=== PATIENT | male | born 1945 | race Caucasian/White ===

== ENCOUNTER 2020-06-22 16:03 | Emergency (ER) | payer MEDICARE, SELFPAY ==
--- NOTE | ~2020-06-22 | CT_ITS ---
EXAMINATION: CT HEAD WITHOUT CONTRAST CLINICAL INFORMATION: Altered mental status COMPARISON: CT head September 16, 2019 TECHNIQUE: Contiguous axial imaging was performed from the skull base to vertex without intravenous administration of contrast. Coronal and sagittal reformatted images are performed at the CT scanner. [This CT examination was performed using dose optimization techniques as appropriate, variously including the following: *Automated exposure control *Adjustment of mA and/or kV according to patient size (this includes techniques or standardized protocols for targeted exams where dose is matched to indication/reason for exam; i.e. extremities or head) *Use of iterative reconstruction technique] DLP: 1198 mGy-cm. FINDINGS: There is no evidence of acute intracranial hemorrhage or territorial infarction. No abnormal mass-effect or midline shift is seen. Dumas to white matter differentiation is well preserved. No extra-axial fluid collections are identified. There is atrophy with prominence of the ventricles and the sulci and hypodensity of the periventricular white matter due to chronic small vessel ischemic disease. There are vascular calcifications of the internal carotid arteries bilaterally. There is no osseous abnormality. The mastoid air cells and visualized portions of the paranasal sinuses are well-aerated. CT/CT head/brain wo con IMPRESSION: No acute intracranial pathology.
--- NOTE | ~2020-06-22 | CT_ITS ---
EXAMINATION: CT ABDOMEN AND PELVIS WITHOUT CONTRAST CLINICAL INFORMATION: Abdominal distention COMPARISON: 05/20/2019 TECHNIQUE: Multidetector volumetric imaging was performed from the superior aspect of the liver through the pubic symphysis. Sagittal and coronal reformatted images were obtained on the technologist's workstation. This CT examination was performed using dose optimization techniques as appropriate, variously including the following: *Automated exposure control *Adjustment of mA and/or kV according to patient size (this includes techniques or standardized protocols for targeted exams where dose is matched to indication/reason for exam; i.e. extremities or head) *Use of iterative reconstruction technique DLP: 1198 mGy-cm FINDINGS: LUNG BASES: No acute findings. LIVER, GALLBLADDER, AND BILIARY TREE: The liver is normal in size, shape, and attenuation. No focal hepatic lesion or biliary ductal dilatation is present. Cholelithiasis without CT evidence of acute cholecystitis. PANCREAS: Unremarkable. SPLEEN: Unremarkable. ADRENAL GLANDS: Unremarkable. KIDNEYS AND URETERS: Punctate nonobstructing calculus lower pole left kidney. No evidence of hydronephrosis or perinephric stranding bilaterally. Ureters normal in course and caliber bilaterally. BLADDER: TURP defect. No focal bladder wall abnormalities. GASTROINTESTINAL TRACT: There is an above average amount of well-formed stool seen throughout the entirety of the colon. The appendix is unremarkable. No evidence of bowel obstruction. ABDOMINAL WALL: No significant hernia is appreciated. LYMPH NODES: No lymphadenopathy within the abdomen or pelvis by CT criteria. VASCULAR: No abdominal aortic aneurysm. The IVC is singular and right-sided. PELVIC VISCERA: Status post TURP. OSSEOUS STRUCTURES: Diffusely decreased bone mineral density. Chronic varus deformity proximal right femur. No acute or suspicious osseous abnormality. CT/CT abdomen pelvis wo con IMPRESSION: 1. No evidence of acute abnormality within the abdomen or pelvis. 2. Constipation. 3. Cholelithiasis without CT evidence of cholecystitis. 4. Punctate nonobstructing left renal calculus.
--- NOTE | ~2020-06-22 | XR_ITS ---
EXAMINATION: PORTABLE CHEST 1 VIEW CLINICAL INFORMATION: ams . COMPARISON: 09/16/2019. TECHNIQUE: Portable frontal view of the chest was obtained. FINDINGS: Lungs are hyperinflated with chronic appearing coarsened reticular markings again seen bilaterally. I do not appreciate any acute superimposed focal infiltrate, effusion, edema, or pneumothorax. Cardiac silhouette within normal limits for size with a calcified mildly tortuous aorta. No acute bony abnormality. XR/XR chest 1V IMPRESSION: Chronic appearing changes similar to the prior study.
[2020-06-22 17:25] VITALS: BP 183/74; PULSE 74; RESP 14; O2SAT 94
[2020-06-22 19:48] VITALS: BP 158/80; PULSE 61; RESP 18; TEMP 36.5; O2SAT 98; BMI 26.6
--- NOTE | 2020-06-22 20:10 | PC.NURSE ---
PT TO MOVE TO MAIN ED. CHARGE NURSE AWARE. PT IS NOT ANSWERING QUESTIONS APPROPRIATELY. TIFFANI SMITH EVALED PATIENT WITH TELEVISION ANALYZER. PT CONTINUES TO C/O ABD PAIN AND BLOATING, URINARY FREQUENCY AND LEG PAIN.
--- NOTE | 2020-06-22 21:05 | ED.GENADULT ---
HPI - General Adult General Chief complaint: General Medical Stated complaint: leg pain Time Seen by Provider: 06/22/20 19:20 Source: patient Mode of arrival: other (Ambulatory with cane) Limitations: altered mental status History of Present Illness HPI narrative: 74-year-old male with past medical history of confusion and altered mental status presents with right toe pain, and altered mental status. Patient is answering questions, states to be confused, and is not in all along he has been confused for. He does have a girlfriend with him, girlfriend states that he is normally confused but today he does not seem to be is normal self. Both patient and patient's family are poor historians. Related Data Previous Rx's Medication Instructions Recorded cefuroxime axetil 500 mg PO Q12H 7 Days #14 tab 06/23/20 polyethylene glycol 3350 [Miralax] 17 g PO DAILY #850 g 06/23/20 Allergies Allergy/AdvReac Type Severity Reaction Status Date / Time No Known Allergies Allergy Unverified 12/11/19 15:44 Review of Systems Review of Systems: Constitutional: Positive altered mental status, No Fever, No Chills ENT/Mouth: No Ear Pain, No Hoarseness, No sore throat Eyes: No Eye Pain, No Swelling, No Redness, No Foreign Body Cardiovascular: No Chest Pain, No SOB Respiratory: No Cough, No Dyspnea Gastrointestinal: No Nausea, No Vomiting, No Diarrhea, No abdominal Pain Genitourinary: No Dysuria, No Hematuria Musculoskeletal: positive right toe pain, No Myalgias, No Joint Swelling Skin: No Skin lacerations, No rash Neuro: No Weakness, No Numbness, No Paresthesias, No Loss of Consciousness, No Dizziness, No Headache Psych: No Anxiety/Panic, No Depression Heme/Lymph: no easy bruising, no Lymphadenopathy Endocrine: No Polyuria, No Polydipsia Yes all other systems are reviewed and are negative [facility] Past Medical History Attestation statement: The following information was validated with the patient. Source: old records reviewed Social History Social History Advance Directives: No Advance Directives Information Provided: Yes Physical Exam Vital Signs: Vital Signs: Last Vital Signs Temp 97.7 F 06/22/20 19:48 Pulse 67 06/22/20 23:13 Resp 16 06/22/20 23:13 BP 151/84 H 06/22/20 23:13 Pulse Ox 95 06/22/20 23:13 Body Mass Index 26.6 Appearance: Alert. Oriented X to. Moderate distress. Confused, cachectic and frail Head: Normal external exam. Normocephalic. Atraumatic. No Babcock signs noted. No raccoon eyes noted Eyes: PERRLA. EOMI. Conjunctiva and sclera normal. Eyelids normal. ENT: TM's Normal. Pharynx normal. Uvula midline. Moist mucous membranes. No trismus noted. No drooling noted. No muffled voice noted. Neck: Normal inspection. Neck supple. No adenopathy. Thyroid Normal. No meningeal signs. No neck mass noted. CVS: Normal heart rate and rhythm. Heart sound normal. No murmurs noted. Pulses equal to all extremities. Respiratory: No respiratory distress. Painless inspiration. Lung sounds clear to auscultation all lobes Chest nontender. No accessory muscle usage noted or decreased air movement noted. Abdomen: Soft and diffusely tender, distended, Bowel sounds normal in all 4 quadrants. No visible injury noted. Back: Positive CVA tenderness. Full range of motion noted. Skin: Skin warm and dry. Normal skin color. Normal skin turgor. No rashes/lesions/lacerations noted. Extremities: No lower extremity edema. Extremities exhibit normal range of motion. Extremities nontender. Neuro: cranial nerves 2-12 intact, no focal neural deficits, strength 5/5 to all extremities, No motor deficit. No sensory deficit. NIH Stroke Scale Internal: Initial- Upon Arrival Level of Consciousness: Alert Level of Consciousness Questions: Answers one question correctly Level of Consciousness Commands: Performs one task correctly Best Gaze: Normal Visual: No visual loss Facial Palsy: Normal Motor Arm (Right): No drift Motor Arm (Left): No drift Motor Leg (Right): No drift Motor Leg (Left): No drift Limb Ataxia: Absent Sensory: Normal Best Language: No aphasia Dysarthia: Normal Extinction and Inattention: No abnormality Score: 2 Course Course Course Narrative: 74-year-old male presents with right toe pain, altered mental status, pleasantly confused, poor historian. Plan of care is to rule out CVA, ACS, patient's abdomen is diffusely tender with CVA tenderness, will order CT scan of abdomen pelvis, chest, and head. Will order labs. CT head abdomen and pelvis negative for acute findings requiring emergent intervention, there are punctate kidney stones and significant constipation to the abdomen, chest x-ray is negative, CBC, Chem 7 are remarkable. Urinalysis positive for UTI. Will treat with cefepime. Plan is to send patient home, patient does have someone that can sweet pickle maker cefepime for him in the morning. Patient is able to answer questions appropriately however needs redirection to stay on task. Medical Decision Making Differential Diagnosis Differential Diagnosis: ACS, CVA, UTI, sepsis, COVID Medical Records Medical records reviewed: Yes I reviewed the patient's medical records. Lab Data Lab results reviewed: Yes I reviewed the patient's lab results. Result diagrams: 06/22/20 22:07 06/22/20 22:07 Labs: Lab Results 06/22/20 06/22/20 06/22/20 Range/Units 22:07 22:07 22:07 WBC 5.0 (4.8-10.8) X10*3/uL RBC 4.33 L (4.60-5.80) X10*6/uL Hgb 12.0 L (14.0-18.0) g/dl Hct 36.3 L (42-52) % MCV 83.8 (80-98) fL MCH 27.7 (27.0-33.0) pg MCHC 33.1 (31.0-36.0) g/dl RDW 13.3 (11.0-16.0) % Plt Count 158 L (160-400) X10*3/uL MPV 10.6 (9.4-12.4) fL Immature Gran % (Auto) 0.2 (0.0-0.4) % Neut % (Auto) 70.8 (45-73) % Lymph % (Auto) 13.7 L (20-40) % Crenshaw % (Auto) 14.3 H (2-11) % Eos % (Auto) 1.0 (0-4) % Baso % (Auto) 0.0 (0-2) % Lymph # (Auto) 0.7 L (1.2-4.9) X10*3/uL Crenshaw # (Auto) 0.7 (0.1-1.2) X10*3/uL Eos # (Auto) 0.1 (0.0-0.4) X10*3/uL Baso # (Auto) 0.0 (0.0-0.2) X10*3/uL Abs Immat Gran (auto) 0.01 (0.00-0.03) X10*3/uL Absolute Neuts (auto) 3.5 (2.0-8.3) X10*3/uL Absolute Nucleated RBC 0.000 (0.0-0.012) X10*3/uL Nucleated RBC % (auto) 0.0 (0.0-0.2) /100WBC Smear Tech's Comments VERIFIED PT 12.5 (10.8-13.0) SEC INR 1.1 (0.9-1.1) APTT 28.0 (24.1-38.0) SEC Sodium 142 (135-145) mmol/L Potassium 3.8 (3.3-5.1) mmol/L Chloride 105 (96-108) mmol/L Carbon Dioxide 28 (22-29) mmol/L Anion Gap 13 (12-20) BUN 15 (9-16) mg/dL Creatinine 1.08 (0.5-1.4) mg/dL Estim Creat Clear Calc 54.9 Estimated GFR > 60 Random Glucose 79 (60-115) mg/dL Lactic Acid (0.5-2.0) mmol/L Calcium 8.9 (8.4-10.2) mg/dL Magnesium 2.0 (1.6-2.6) mg/dL Total Bilirubin 0.6 (0.0-1.0) mg/dL Direct Bilirubin 0.2 (0.0-0.5) mg/dL AST 23 (5-37) U/L ALT 17 (0-40) U/L Alkaline Phosphatase 44 (39-117) U/L Troponin I High Sens (<3.5-35.0) ng/L Total Protein 6.6 (6.5-8.0) g/dL Albumin 4.3 (3.5-5.0) g/dL Lipase 40 (8-78) U/L Urine Color Urine Appearance Urine pH Ur Specific [place] Urine Protein Urine Glucose (UA) Urine Ketones Urine Blood Urine Nitrite Ur Leukocyte Esterase Urine RBC (0) /HPF Urine WBC (0-4) /HPF Ur Squamous Epith Cells /LPF Urine Bacteria /LPF Urine Opiates Screen Ur Barbiturates Screen Ur Phencyclidine Scrn Ur Amphetamines Screen U Benzodiazepines Scrn Urine Cocaine Screen U Marijuana (THC) Screen Ethyl Alcohol mg/dL Coronavirus (PCR) (Negative) Influenza Type A (PCR) (Negative) Influenza Type B (PCR) (Negative) RSV RNA Qual (PCR) (Negative) 06/22/20 06/22/20 06/22/20 Range/Units 22:07 22:07 22:07 WBC (4.8-10.8) X10*3/uL RBC (4.60-5.80) X10*6/uL Hgb (14.0-18.0) g/dl Hct (42-52) % MCV (80-98) fL MCH (27.0-33.0) pg MCHC (31.0-36.0) g/dl RDW (11.0-16.0) % Plt Count (160-400) X10*3/uL MPV (9.4-12.4) fL Immature Gran % (Auto) (0.0-0.4) % Neut % (Auto) (45-73) % Lymph % (Auto) (20-40) % Crenshaw % (Auto) (2-11) % Eos % (Auto) (0-4) % Baso % (Auto) (0-2) % Lymph # (Auto) (1.2-4.9) X10*3/uL [place] # (Auto) (0.1-1.2) X10*3/uL Eos # (Auto) (0.0-0.4) X10*3/uL Baso # (Auto) (0.0-0.2) X10*3/uL Abs Immat Gran (auto) (0.00-0.03) X10*3/uL Absolute Neuts (auto) (2.0-8.3) X10*3/uL Absolute Nucleated RBC (0.0-0.012) X10*3/uL Nucleated RBC % (auto) (0.0-0.2) /100WBC Smear Tech's Comments PT (10.8-13.0) SEC INR (0.9-1.1) APTT (24.1-38.0) SEC Sodium (135-145) mmol/L Potassium (3.3-5.1) mmol/L Chloride (96-108) mmol/L Carbon Dioxide (22-29) mmol/L Anion Gap (12-20) BUN (9-16) mg/dL Creatinine (0.5-1.4) mg/dL Estim Creat Clear Calc Estimated GFR Random Glucose (60-115) mg/dL Lactic Acid 0.5 (0.5-2.0) mmol/L Calcium (8.4-10.2) mg/dL Magnesium (1.6-2.6) mg/dL Total Bilirubin (0.0-1.0) mg/dL Direct Bilirubin (0.0-0.5) mg/dL AST (5-37) U/L ALT (0-40) U/L Alkaline Phosphatase (39-117) U/L Troponin I High Sens < 3.5 (<3.5-35.0) ng/L Total Protein (6.5-8.0) g/dL Albumin (3.5-5.0) g/dL Lipase (8-78) U/L Urine Color Urine Appearance Urine pH Ur Specific [place] Urine Protein Urine Glucose (UA) Urine Ketones Urine Blood Urine Nitrite Ur Leukocyte Esterase Urine RBC (0) /HPF Urine WBC (0-4) /HPF Ur Squamous Epith Cells /LPF Urine Bacteria /LPF Urine Opiates Screen Ur Barbiturates Screen Ur Phencyclidine Scrn Ur Amphetamines Screen U Benzodiazepines Scrn Urine Cocaine Screen U Marijuana (THC) Screen Ethyl Alcohol mg/dL Coronavirus (PCR) NEGATIVE (Negative) Influenza Type A (PCR) NEGATIVE (Negative) Influenza Type B (PCR) NEGATIVE (Negative) RSV RNA Qual (PCR) NEGATIVE (Negative) 06/22/20 06/22/20 06/22/20 Range/Units 22:07 22:22 22:22 WBC (4.8-10.8) X10*3/uL RBC (4.60-5.80) X10*6/uL Hgb (14.0-18.0) g/dl Hct (42-52) % MCV (80-98) fL MCH (27.0-33.0) pg MCHC (31.0-36.0) g/dl RDW (11.0-16.0) % Plt Count (160-400) X10*3/uL MPV (9.4-12.4) fL Immature Gran % (Auto) (0.0-0.4) % Neut % (Auto) (45-73) % Lymph % (Auto) (20-40) % C[place]shaw % (Auto) (2-11) % Eos % (Auto) (0-4) % Baso % (Auto) (0-2) % Lymph # (Auto) (1.2-4.9) X10*3/uL [place] # (Auto) (0.1-1.2) X10*3/uL Eos # (Auto) (0.0-0.4) X10*3/uL Baso # (Auto) (0.0-0.2) X10*3/uL Abs Immat Gran (auto) (0.00-0.03) X10*3/uL Absolute Neuts (auto) (2.0-8.3) X10*3/uL Absolute Nucleated RBC (0.0-0.012) X10*3/uL Nucleated RBC % (auto) (0.0-0.2) /100WBC Smear Tech's Comments PT (10.8-13.0) SEC INR (0.9-1.1) APTT (24.1-38.0) SEC Sodium (135-145) mmol/L Potassium (3.3-5.1) mmol/L Chloride (96-108) mmol/L Carbon Dioxide (22-29) mmol/L Anion Gap (12-20) BUN (9-16) mg/dL Creatinine (0.5-1.4) mg/dL Estim Creat Clear Calc Estimated GFR Random Glucose (60-115) mg/dL Lactic Acid (0.5-2.0) mmol/L Calcium (8.4-10.2) mg/dL Magnesium (1.6-2.6) mg/dL Total Bilirubin (0.0-1.0) mg/dL Direct Bilirubin (0.0-0.5) mg/dL AST (5-37) U/L ALT (0-40) U/L Alkaline Phosphatase (39-117) U/L Troponin I High Sens (<3.5-35.0) ng/L Total Protein (6.5-8.0) g/dL Albumin (3.5-5.0) g/dL Lipase (8-78) U/L Urine Color Cancelled Urine Appearance Cancelled Urine pH Cancelled Ur Specific [place] Cancelled Urine Protein Cancelled Urine Glucose (UA) Cancelled Urine Ketones Cancelled Urine Blood Cancelled Urine Nitrite Cancelled Ur Leukocyte Esterase Cancelled Urine RBC (0) /HPF Urine WBC (0-4) /HPF Ur Squamous Epith Cells /LPF Urine Bacteria /LPF Urine Opiates Screen Cancelled Ur Barbiturates Screen Cancelled Ur Phencyclidine Scrn Cancelled Ur Amphetamines Screen Cancelled U Benzodiazepines Scrn Cancelled Urine Cocaine Screen Cancelled U Marijuana (THC) Screen Cancelled Ethyl Alcohol < 10 mg/dL Coronavirus (PCR) (Negative) Influenza Type A (PCR) (Negative) Influenza Type B (PCR) (Negative) RSV RNA Qual (PCR) (Negative) 06/23/20 06/23/20 Range/Units 00:00 00:00 WBC (4.8-10.8) X10*3/uL RBC (4.60-5.80) X10*6/uL Hgb (14.0-18.0) g/dl Hct (42-52) % MCV (80-98) fL MCH (27.0-33.0) pg MCHC (31.0-36.0) g/dl RDW (11.0-16.0) % Plt Count (160-400) X10*3/uL MPV (9.4-12.4) fL Immature Gran % (Auto) (0.0-0.4) % Neut % (Auto) (45-73) % Lymph % (Auto) (20-40) % [place] % (Auto) (2-11) % Eos % (Auto) (0-4) % Baso % (Auto) (0-2) % Lymph # (Auto) (1.2-4.9) X10*3/uL [place] # (Auto) (0.1-1.2) X10*3/uL Eos # (Auto) (0.0-0.4) X10*3/uL Baso # (Auto) (0.0-0.2) X10*3/uL Abs Immat Gran (auto) (0.00-0.03) X10*3/uL Absolute Neuts (auto) (2.0-8.3) X10*3/uL Absolute Nucleated RBC (0.0-0.012) X10*3/uL Nucleated RBC % (auto) (0.0-0.2) /100WBC Smear Tech's Comments PT (10.8-13.0) SEC INR (0.9-1.1) APTT (24.1-38.0) SEC Sodium (135-145) mmol/L Potassium (3.3-5.1) mmol/L Chloride (96-108) mmol/L Carbon Dioxide (22-29) mmol/L Anion Gap (12-20) BUN (9-16) mg/dL Creatinine (0.5-1.4) mg/dL Estim Creat Clear Calc Estimated GFR Random Glucose (60-115) mg/dL Lactic Acid (0.5-2.0) mmol/L Calcium (8.4-10.2) mg/dL Magnesium (1.6-2.6) mg/dL Total Bilirubin (0.0-1.0) mg/dL Direct Bilirubin (0.0-0.5) mg/dL AST (5-37) U/L ALT (0-40) U/L Alkaline Phosphatase (39-117) U/L Troponin I High Sens (<3.5-35.0) ng/L Total Protein (6.5-8.0) g/dL Albumin (3.5-5.0) g/dL Lipase (8-78) U/L Urine Color YELLOW Urine Appearance CLEAR Urine pH 6.0 Ur Specific [place] 1.010 Urine Protein NEG Urine Glucose (UA) NEG Urine Ketones NEG Urine Blood 1+ H Urine Nitrite NEG Ur Leukocyte Esterase 1+ H Urine RBC 1-4 (0) /HPF Urine WBC 5-9 H (0-4) /HPF Ur Squamous Epith Cells TRACE /LPF Urine Bacteria TRACE /LPF Urine Opiates Screen Not Detected Ur Barbiturates Screen Not Detected Ur Phencyclidine Scrn Not Detected Ur Amphetamines Screen Not Detected U Benzodiazepines Scrn Not Detected Urine Cocaine Screen Not Detected U Marijuana (THC) Screen Not Detected Ethyl Alcohol mg/dL Coronavirus (PCR) (Negative) Influenza Type A (PCR) (Negative) Influenza Type B (PCR) (Negative) RSV RNA Qual (PCR) (Negative) Imaging Data Chest x-ray: Attestation: I personally reviewed and interpreted this imaging study as follows: Radiologist's impression: EXAMINATION: PORTABLE CHEST 1 VIEW CLINICAL INFORMATION: ams . COMPARISON: 09/16/2019. TECHNIQUE: Portable frontal view of the chest was obtained. FINDINGS: Lungs are hyperinflated with chronic appearing coarsened reticular markings again seen bilaterally. I do not appreciate any acute superimposed focal infiltrate, effusion, edema, or pneumothorax. Cardiac silhouette within normal limits for size with a calcified mildly tortuous aorta. No acute bony abnormality. XR/XR chest 1V IMPRESSION: Chronic appearing changes similar to the prior study. CT scan - head: Attestation: I personally reviewed and interpreted this imaging study as follows: Radiologist's impression: EXAMINATION: CT HEAD WITHOUT CONTRAST CLINICAL INFORMATION: Altered mental status COMPARISON: CT head September 16, 2019 TECHNIQUE: Contiguous axial imaging was performed from the skull base to vertex without intravenous administration of contrast. Coronal and sagittal reformatted images are performed at the CT scanner. [This CT examination was performed using dose optimization techniques as appropriate, variously including the following: *Automated exposure control *Adjustment of mA and/or kV according to patient size (this includes techniques or standardized protocols for targeted exams where dose is matched to indication/reason for exam; i.e. extremities or head) *Use of iterative reconstruction technique] DLP: 1198 mGy-cm. FINDINGS: There is no evidence of acute intracranial hemorrhage or territorial infarction. No abnormal mass-effect or midline shift is seen. Dumas to white matter differentiation is well preserved. No extra-axial fluid collections are identified. There is atrophy with prominence of the ventricles and the sulci and hypodensity of the periventricular white matter due to chronic small vessel ischemic disease. There are vascular calcifications of the internal carotid arteries bilaterally. There is no osseous abnormality. The mastoid air cells and visualized portions of the paranasal sinuses are well-aerated. CT/CT head/brain wo con IMPRESSION: No acute intracranial pathology. CT scan - abdomen: Attestation: I personally reviewed and interpreted this imaging study as follows: Radiologist's impression: FINDINGS: LUNG BASES: No acute findings. LIVER, GALLBLADDER, AND BILIARY TREE: The liver is normal in size, shape, and attenuation. No focal hepatic lesion or biliary ductal dilatation is present. Cholelithiasis without CT evidence of acute cholecystitis. PANCREAS: Unremarkable. SPLEEN: Unremarkable. ADRENAL GLANDS: Unremarkable. KIDNEYS AND URETERS: Punctate nonobstructing calculus lower pole left kidney. No evidence of hydronephrosis or perinephric stranding bilaterally. Ureters normal in course and caliber bilaterally. BLADDER: TURP defect. No focal bladder wall abnormalities. GASTROINTESTINAL TRACT: There is an above average amount of well-formed stool seen throughout the entirety of the colon. The appendix is unremarkable. No evidence of bowel obstruction. ABDOMINAL WALL: No significant hernia is appreciated. LYMPH NODES: No lymphadenopathy within the abdomen or pelvis by CT criteria. VASCULAR: No abdominal aortic aneurysm. The IVC is singular and right-sided. PELVIC VISCERA: Status post TURP. OSSEOUS STRUCTURES: Diffusely decreased bone mineral density. Chronic varus deformity proximal right femur. No acute or suspicious osseous abnormality. CT/CT abdomen pelvis wo con IMPRESSION: 1. No evidence of acute abnormality within the abdomen or pelvis. 2. Constipation. 3. Cholelithiasis without CT evidence of cholecystitis. 4. Punctate nonobstructing left renal calculus. ECG Data Attestation: I personally reviewed and interpreted this ECG as follows: Prior ECG tracings: not available for review Interpretation: Ventricular rate 54 beats per minute, TN 168, QRS 134, QT 452, QTC 428, sinus Lino, left axis deviation, nonspecific intraventricular block, prior EKGs unavailable secondary to system 130 error Discharge Plan Discharge Clinical Impression: Acute UTI Constipation Qualifiers: Constipation type: unspecified constipation type Qualified Code(s): K59.00 - Constipation, unspecified Patient Disposition: Home, Self-Care Instructions: Constipation (ED), Urinary Tract Infection in Men (ED) Additional Instructions: Te evaluaron por confusi?n y alteraci?n del estado mental. La miclisis indica UTI. Te trataremos con cefepime. Shannon medicamento es un antibi?angy. Por favor, recoja shannon medicamento y complete todo el curso. La tomograf?a computarizada del abdomen indica estre?imiento, as? rommel c?lculos renales. Por favor, khari muchos l?quidos, use MiraLax todos los d?as para ayudar con las deposiciones. Te quejaste de un gran dolor en el dedo del pie, esto podr?a ser gota. Por favor, darius un seguimiento con el m?dico de atenci?n primaria para pena evaluaci?n. Colin por elegir shannon departamento de emergencias para pena evaluaci?n. Por favor, darius un seguimiento con el m?dico de atenci?n primaria seg?n sea necesario. Regrese al servicio de emergencias para cualquier s?ntoma nuevo, preocupante o que empeore. You were evaluated for confusion and altered mental status. Urinalysis indicates UTI. We will treat you with cefepime. This medication is an antibiotic. Please sweet pickle maker this medication and complete the entire course. CT scan of the abdomen indicates constipation as well as kidney stones. Please drink plenty of fluids, use MiraLax daily to help with bowel movements. You complained of great toe pain, this could possibly be gout. Please follow-up with primary care physician for evaluation. Thank you for choosing this emergency department for evaluation. Please follow-up with primary care physician as needed. Return to the emergency department for any new, concerning, or worsening symptoms. Prescriptions: New cefuroxime axetil 500 mg tablet 500 mg PO Q12H 7 Days Qty: 14 RF: 0 polyethylene glycol 3350 [Miralax] 17 gram/dose powder 17 g PO DAILY Qty: 850 RF: 0
--- NOTE | 2020-06-22 21:06 | ECG_ITS ---
Test Reason : ams Blood Pressure : / mmHG Vent. Rate : 054 BPM Atrial Rate : 054 BPM P-R Int : 168 ms QRS Dur : 134 ms QT Int : 452 ms P-R-T Axes : 082 -66 -36 degrees QTc Int : 428 ms Sinus bradycardia Left axis deviation Non-specific intra-ventricular conduction block Abnormal ECG When compared to the previous EKG of No significant changes seen Referred By: Katarzyna Muhammad Electronically Signed By:Haider Hurt
--- NOTE | 2020-06-22 21:06 | PC.NURSE ---
CHARGE NURSE AWARE THAT PATIENT NOT COMPLETELY ORIENTED AND IS THREATENING TO LEAVE. WAITING FOR BED IN MAIN ED.
[2020-06-22 22:20] LABS: Eosinophils Absolute Auto 0.1 X10*3/uL (0.0-0.4); Hematocrit 36.3 % (42-52); Imm Gran Abs Auto 0.01 X10*3/uL (0.00-0.03); Imm Gran Pct Auto 0.2 % (0.0-0.4); Lymphocytes Absolute Auto 0.7 X10*3/uL (1.2-4.9); Lymphocytes Percent Auto 13.7 % (20-40); MANUAL DIFF FLAG SCAN; Mean Corpuscular HGB Conc 33.1 g/dl (31.0-36.0); Mean Corpuscular Hemoglobin 27.7 pg (27.0-33.0); Mean Corpuscular Volume 83.8 fL (80-98); Mean Platelet Volume 10.6 fL (9.4-12.4); Monocytes Absolute Auto 0.7 X10*3/uL (0.1-1.2); Monocytes Percent Auto 14.3 % (2-11); Neutrophils Absolute Auto 3.5 X10*3/uL (2.0-8.3); Neutrophils Percent Auto 70.8 % (45-73); Platelet Count 158 X10*3/uL (160-400); Red Blood Count 4.33 X10*6/uL (4.60-5.80); Red Cell Distribution Width 13.3 % (11.0-16.0); SCAN SMEAR FLAG 1
[2020-06-22 22:26] LABS: INTERNATIONAL NORM RATIO 1.1 (0.9-1.1); Prothrombin Time 12.5 SEC (10.8-13.0)
[2020-06-22 22:45] LABS: Lactic Acid 0.5 mmol/L (0.5-2.0)
[2020-06-22 22:47] LABS: SLIDE REVIEW VERIFIED
[2020-06-22 22:49] LABS: Ethanol < 10 mg/dL
[2020-06-22 22:51] LABS: Alanine Aminotransferase 17 U/L (0-40); Albumin Level 4.3 g/dL (3.5-5.0); Alkaline Phosphatase 44 U/L (39-117); Anion Gap 13 (12-20); Aspartate Amino Transferase 23 U/L (5-37); Bilirubin Direct 0.2 mg/dL (0.0-0.5); Bilirubin Total 0.6 mg/dL (0.0-1.0); Blood Urea Nitrogen 15 mg/dL (9-16); Calcium 8.9 mg/dL (8.4-10.2); Carbon Dioxide 28 mmol/L (22-29); Chloride 105 mmol/L (96-108); Creatinine Clr Calc Pharmacy 54.9; Estimated Glomerular Filt Rate > 60; Glucose Random 79 mg/dL (60-115); Lipase 40 U/L (8-78); Potassium 3.8 mmol/L (3.3-5.1); Sodium 142 mmol/L (135-145); Total Protein 6.6 g/dL (6.5-8.0)
[2020-06-22 22:57] LABS: Troponin-I High Sensitivity < 3.5 ng/L (<3.5-35.0)
[2020-06-22 23:01] LABS: Influenza A PCR NEGATIVE (Negative); Influenza B PCR NEGATIVE (Negative); Resp Syncy Virus RNA Qual PCR NEGATIVE (Negative); SARS COV2 PCR INHOUSE NEGATIVE (Negative)
[2020-06-22] MEDS: 0.9 % Sodium Chloride 1,000 ML 999 ML IVCONT (23:12)
[2020-06-22 23:13] VITALS: BP 151/84; PULSE 67; RESP 16; O2SAT 95
[2020-06-23 00:08] LABS: Glucose Urine UA NEG (NEG); Leukocyte Esterase Urine 1+ (NEG); Nitrite Urine NEG (NEG); UACC Culture Trigger YES; Urine Blood 1+ (NEG); Urine Ketones NEG (NEG); Urine Protein NEG (NEG-TRACE)
[2020-06-23 00:09] LABS: Appearance Urine CLEAR; Color Urine YELLOW
[2020-06-23 00:16] LABS: Squamous Epithelial Cell Urine TRACE /LPF
[2020-06-23 00:17] LABS: Bacteria Urine TRACE /LPF
[2020-06-23 00:58] LABS: Amphetamine Screen Urine Not Detected (Not Detect); Barbiturates, Urine Not Detected (Not Detect); Benzodiazepines Screen Urine Not Detected (Not Detect); Cannabinoid Screen Urine Not Detected (Not Detect); Cocaine Screen Urine Not Detected (Not Detect); Opiate Screen Urine Not Detected (Not Detect); Phencyclidine Screen Urine Not Detected (Not Detect)
== END 2020-06-23 02:38 | disposition home or self-care (01) ==
PROVIDERS: Nurse Practitioner Family; Emergency Provider Emergency Medicine Emergency Medical Services; PCP Nurse Practitioner Family
DX: N39.0 Urinary tract infection, site not specified (principal); K59.00 Constipation, unspecified; M79.604 Pain in right leg; R29.702 NIHSS score 2; R41.82 Altered mental status, unspecified; Z20.822 Contact with and (suspected) exposure to COVID-19; Z79.899 Other long term (current) drug therapy
CPT/HCPCS: 0241U; 36415; 70450; 71045; 74176; 80048; 80076; 80307; 80320; 81001; 81003; 83605; 83690; 83735; 84484; 85025; 85610; 85730; 87040; 87086; 93005; 96360; 99283; 99284

== ENCOUNTER 2020-08-03 12:33 | Outpatient (REF) | payer MEDICARE, SELFPAY ==
--- NOTE | ~2020-08-03 | XR_ITS ---
EXAMINATION: XR KNEE, RIGHT CLINICAL INFORMATION: Right knee pain. COMPARISON: 06/02/2019 and 06/27/2017 TECHNIQUE: Four views of the right knee. FINDINGS: There is diffuse osteopenia of visualized bones. There is severe degenerative change of the medial joint space compartment with loss of the joint space and with marginal sclerosis. No significant narrowing of the lateral joint space compartment is seen with minor marginal spurring. There is degenerative spurring seen at the patellofemoral joint with some loss of joint space seen medially and with some prominent spurring. There is a small knee effusion. There is chondrocalcinosis present. The corticated loose body about the anterior joint space is again noted and unchanged in appearance. XR/XR knee RT 4V IMPRESSION: Degenerative change of the right knee involving the medial joint space compartment and patellofemoral joint, as described. This shows progression of disease involving the medial joint space compartment since previous study of 06/02/2019. Loose body without significant change.
--- NOTE | ~2020-08-03 | US_ITS ---
EXAMINATION: US VENOUS ULTRASOUND WITH DOPPLER LOWER EXTREMITY, RIGHT CLINICAL INFORMATION: Swelling and pain COMPARISON: None TECHNIQUE: Ultrasound of the deep veins is performed from the hip to the calf with compression sonography and color and pulse Doppler assessment. Spectral analysis with color-flow imaging is performed. FINDINGS: There is normal venous compression and respiratory variation and augmented flow. The visualized common femoral vein, superficial femoral vein, profunda femoral vein, popliteal vein, and the trifurcation region shows no evidence of deep venous thrombosis. There is a 5.1 x 1.9 x 3.4 cm Pickett's cyst extending into the proximal calf. US/US venous duplex LE RT IMPRESSION: No DVT demonstrated in the right lower extremity. Pickett's cyst.
== END 2020-08-03 12:34 | disposition home or self-care (01) ==
LOC: HO.XRAY 12:33
PROVIDERS: PCP Family Medicine; Visit Provider Emergency Medicine
DX: M79.661 Pain in right lower leg (principal); M25.561 Pain in right knee; R60.0 Localized edema; Z85.51 Personal history of malignant neoplasm of bladder
CPT/HCPCS: 73564; 93971

== ENCOUNTER 2020-08-05 13:49 | Emergency (ER) | payer MEDICARE, SELFPAY ==
--- NOTE | ~2020-08-05 | XR_ITS ---
EXAMINATION: XR KNEE, RIGHT CLINICAL INFORMATION: Right knee pain COMPARISON: None TECHNIQUE: Four views of the right knee. FINDINGS: There is moderate loss of medial and patellofemoral compartment joint space with moderate suprapatellar joint effusion. Moderate periarticular spurring is seen in the medial and patellofemoral compartment. There is a 1.1 x 1.1 cm osseous loose body along the anterior knee joint best visualized on lateral projection. No soft tissue abnormality seen. XR/XR knee RT 4V IMPRESSION: Moderate to significant degenerative arthritic changes medial and patellofemoral compartment joint space with moderate suprapatellar joint effusion. There is 1.1 cm loose body anterior to knee joint.
[2020-08-05 15:21] VITALS: BP 133/77; PULSE 68; RESP 20; TEMP 36.8; O2SAT 98; BMI 27.4
--- NOTE | 2020-08-05 15:29 | ED.LOWEXIN ---
HPI - Extremity Injury (Lower) General Chief Complaint: Extremity Problem Stated Complaint: rt knee pain, no known injury Time Seen by Provider: 08/05/20 15:13 Source: patient and educational interpreter Mode of arrival: ambulatory Limitations: other (poor historian) History of Present Illness complaint: knee injury Onset (ago): day(s) (last night) Injury: Right: knee Type of Injury: hyperextension Place: home Severity: moderate Relieving factors: nothing Exacerbating factors: weight bearing, movement and palpation Context: other (was getting into his bed accidentally hyperextended his knee now c/o pain) Associated symptoms: snap/pop sensation, swelling and unable to bear weight Other symptoms: none Treatments prior to arrival: bandage Related Data Previous Rx's Medication Instructions Recorded cefuroxime axetil 500 mg PO Q12H 7 Days #14 tab 06/23/20 polyethylene glycol 3350 [Miralax] 17 g PO DAILY #850 g 06/23/20 hydrocodone-acetaminophen 1 tab PO Q6H PRN #12 tab 08/05/20 Allergies Allergy/AdvReac Type Severity Reaction Status Date / Time No Known Allergies Allergy Unverified 12/11/19 15:44 Review of Systems Review of Systems: Constitutional : No Fever, No Chills ENT/Mouth : No Ear Pain, No Hoarseness, No sore throat Eyes: No Eye Pain, No Swelling, No Redness, No Foreign Body Cardiovascular : No Chest Pain, No SOB Respiratory : No Cough, No Dyspnea Gastrointestinal : No Nausea, No Vomiting, No Diarrhea, No abdominal Pain Genitourinary : No Dysuria, No Hematuria Musculoskeletal : positive joint pain, No Myalgias, No Joint Swelling Skin : No Skin lacerations, No rash Neuro : No Weakness, No Numbness PMFSH Past Medical History Attestation statement: The following information was validated with the patient. Medical History Confusion Social History Social History Smoked in Last 30 Days: No Use of substances other than those prescribed or required for medical reasons: No Advance Directives: No Advance Directives Information Provided: Yes Physical Exam Vital Signs: Vital Signs: Last Vital Signs Temp 98.4 F 08/05/20 16:00 Pulse 61 08/05/20 16:00 Resp 16 08/05/20 16:00 BP 112/60 08/05/20 16:00 Pulse Ox 95 08/05/20 16:00 Body Mass Index 27.4 Appearance: Alert. Oriented X3. No acute distress. Eyes: Pupils equal, round and reactive to light. ENT: Pharynx normal. Neck: Normal inspection. Neck supple. CVS: Normal heart rate and rhythm. Pulses normal. Respiratory: No respiratory distress. Breath sounds normal. Abdomen: Soft and nontender. Skin: Skin warm and dry. Normal skin color. Normal skin turgor. Extremities: No lower extremity edema. No calf ttp N intact, R knee ttp along medial joint line - distal NV intact laxity in MCL and ACL testing Neuro: Oriented X 3. No motor deficit. No sensory deficit. Course Course Course Narrative: 74 yo male with some mild baseline confusion at this c/o R knee pain at this time NV intact, xrays ordered to r/o fracture, PO pain medications likely fracture vs ligamentous injury Procedures Orthopedic Splinting/Casting Injury #1: Side: right Lower Extremity Injury Location: knee Lower Extremity Immobilizer: knee immobilizer Other Orthopedic Equipment: cane MDM - Extremity Injury (Lower) MDM Narrative Medical decision making narrative: 74 yo male with some mild baseline confusion at this c/o R knee pain at this time NV intact, xrays ordered to r/o fracture, PO pain medications likely fracture vs ligamentous injury Discharge Plan Discharge Clinical Impression: Knee sprain Qualifiers: Encounter type: initial encounter Involved ligament of knee: unspecified ligament Laterality: right Qualified Code(s): S83.91XA - Sprain of unspecified site of right knee, initial encounter Patient Disposition: Home, Self-Care Instructions: Knee Sprain (ED), Knee Immobilizer (ED) Additional Instructions: return to ED for any worsening symptoms or concerns wear immobilizer until you see your doctor IMPRESSION: Moderate to significant degenerative arthritic changes medial and patellofemoral compartment joint space with moderate suprapatellar joint effusion. There is 1.1 cm loose body anterior to knee joint. Prescriptions: New hydrocodone-acetaminophen 5-325 mg tablet 1 tab PO Q6H PRN (Reason: pain) Qty: 12 RF: 0 No Action cefuroxime axetil 500 mg tablet 500 mg PO Q12H 7 Days Qty: 14 RF: 0 polyethylene glycol 3350 [Miralax] 17 gram/dose powder 17 g PO DAILY Qty: 850 RF: 0 Referrals: Raiza Blair PA-C [[facility]] - 1 week Print Language: Macedonian
[2020-08-05] MEDS: oxyCODONE HCl Immed Release 5 MG TABLET 10 MG PO (15:32)
[2020-08-05 16:00] VITALS: BP 112/60; PULSE 61; RESP 16; TEMP 36.9; O2SAT 95
--- NOTE | 2020-08-05 16:57 | PC.NURSE ---
knee immobilizer was placed on patient right leg prior to dc.
== END 2020-08-05 16:23 | disposition home or self-care (01) ==
PROVIDERS: Emergency Provider Emergency Medicine; PCP Family Medicine
DX: S83.91XA Sprain of unspecified site of right knee, initial encounter (principal); X50.1XXA Overexertion from prolonged static or awkward postures, initial encounter; Y93.89 Activity, other specified; Y92.032 Bedroom in apartment as the place of occurrence of the external cause; Y99.8 Other external cause status
CPT/HCPCS: 73564; 99283; 99284

== ENCOUNTER 2020-09-13 17:11 | Emergency (ER) | payer MEDICARE, SELFPAY ==
--- NOTE | ~2020-09-13 | XR_ITS ---
EXAMINATION: XR TOES, RIGHT CLINICAL INFORMATION: Rule out right first toe fracture. COMPARISON: None TECHNIQUE: AP, oblique and lateral radiographs of the right first metatarsal phalanx. FINDINGS: Diffuse osteopenia is noted. No fractures are identified. Mild joint space narrowing and subchondral sclerosis of the interphalangeal joint is identified. No dystrophic calcifications or subcutaneous emphysema is visualized. XR/XR toe RT min 2V IMPRESSION: No fractures or acute abnormalities of the right first metatarsal ray. 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
[2020-09-13 17:40] VITALS: BP 127/71; PULSE 75; RESP 16; TEMP 36.6; O2SAT 96; BMI 27.1
--- NOTE | 2020-09-13 18:37 | ED_ITS ---
HPI - Extremity Problem General Chief complaint: Extremity Problem Stated complaint: Toe swelling Time Seen by Provider: 09/13/20 18:20 Source: patient Mode of arrival: ambulatory Limitations: no limitations History of Present Illness HPI Narrative: Patient comes emergency room complaining of toe pain on his right foot. Patient states that 3 days ago he was changing the battery of his car, when he lifted the battery out of his car, he dropped it and fell on his great toe. Patient sustained a small abrasion, but states that he thinks that his toe may be fractured. Related Data Previous Rx's Medication Instructions Recorded cefuroxime axetil 500 mg PO Q12H 7 Days #14 tab 06/23/20 polyethylene glycol 3350 [Miralax] 17 g PO DAILY #850 g 06/23/20 hydrocodone-acetaminophen 1 tab PO Q6H PRN #12 tab 08/05/20 acetaminophen 500 mg PO Q6H PRN #10 tab 09/13/20 Allergies Allergy/AdvReac Type Severity Reaction Status Date / Time No Known Allergies Allergy Verified 09/13/20 17:43 Review of Systems Review of Systems: Constitutional : No Weight loss, No Fever, No Chills, No Night Sweats, No Fatigue, No Malaise ENT/Mouth : No Hearing loss, No Ear Pain, No Nasal Congestion, No Sinus Pain, No Hoarseness, No sore throat, No Rhinorrhea, No Swallowing Difficulty Eyes: No Eye Pain, No Swelling, No Redness, No Foreign Body, No Discharge, No Vision Changes Cardiovascular : No Chest Pain, No SOB, No Dyspnea on Exertion, No Orthopnea, No Edema, No Palpitations Respiratory : No Cough, No Sputum, No Wheezing, No Smoke Exposure, No Dyspnea Gastrointestinal : No Nausea, No Vomiting, No Diarrhea, No Constipation, No abdominal Pain, No Hematochezia, No Melena Genitourinary : no irregular bleeding, No Dysuria, No Urinary Frequency, No Hematuria, No Urinary Incontinence, No Urgency, No Flank Pain, No Urinary Flow Changes, No Hesitancy Musculoskeletal : Great toe pain on the right side No Myalgias, No Joint Swelling Skin : Small skin abrasion to the toe on the right foot Neuro : No Weakness, No Numbness, No Paresthesias, No Loss of Consciousness, No Dizziness, No Headache Psych : No Anxiety/Panic, No Depression, No SI/HI/AH/VH, No Social Issues, Heme/Lymph: No Bruising, No Bleeding,No Lymphadenopathy Endocrine : No Polyuria, No Polydipsia, No Temperature Intolerance [facility] Past Medical History Medical History Bladder cancer BPH (benign prostatic hyperplasia) Confusion COPD (chronic obstructive pulmonary disease) Diabetes mellitus Hepatitis B HIV disease Social History Social History Advance Directives: No Advance Directives Information Provided: No Physical Exam Vital Signs: Vital Signs: Last Vital Signs Temp 97.8 F 09/13/20 17:40 Pulse 75 09/13/20 17:40 Resp 16 09/13/20 17:40 BP 127/71 09/13/20 17:40 Pulse Ox 96 09/13/20 17:40 Body Mass Index 27.1 Appearance: Alert. Oriented X3. No acute distress. Eyes: Pupils equal, round and reactive to light. ENT: Pharynx normal. Neck: Normal inspection. Neck supple. No lymph nodes noted. No crepitus CVS: Normal heart rate and rhythm. Pulses normal. Normal S1 and S2 Respiratory: No respiratory distress. Breath sounds normal. No Wheezing. No rales Abdomen: Soft and nontender. No rigidity. No distention. good BS x4 Skin: Skin warm and dry. Great toe on the right foot has ecchymosis, 2 cm abrasion, bleeding controlled, no signs of cellulitis Extremities: No lower extremity edema. No lower extremity edema. No Lacerations. No Rash Neuro: Oriented X 3. No motor deficit. No sensory deficit. Moving all extermities. No slurred speech. Course Course Course Narrative: I discussed with the patient that his toe is not fractured. Patient will continue home wound care. As mentioned above, patient's foot does not look infected MDM - Extremity (Nontraumatic) Imaging Data Toe x-ray: Radiologist's impression: TECHNIQUE: AP, oblique and lateral radiographs of the right first metatarsal phalanx. FINDINGS: Diffuse osteopenia is noted. No fractures are identified. Mild joint space narrowing and subchondral sclerosis of the interphalangeal joint is identified. No dystrophic calcifications or subcutaneous emphysema is visualized. XR/XR toe RT min 2V IMPRESSION: No fractures or acute abnormalities of the right first metatarsal ray. 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 Discharge Plan Discharge Clinical Impression: Abrasion Contusion of toe Qualifiers: Encounter type: initial encounter Toe: great toe Damage to nail status: without damage Laterality: right Qualified Code(s): S90.111A - Contusion of right great toe without damage to nail, initial encounter Patient Disposition: Home, Self-Care Instructions: Foot Contusion (ED) Prescriptions: New acetaminophen 500 mg tablet 500 mg PO Q6H PRN (Reason: pain) Qty: 10 RF: 0 No Action cefuroxime axetil 500 mg tablet 500 mg PO Q12H 7 Days Qty: 14 RF: 0 polyethylene glycol 3350 [Miralax] 17 gram/dose powder 17 g PO DAILY Qty: 850 RF: 0 hydrocodone-acetaminophen 5-325 mg tablet 1 tab PO Q6H PRN (Reason: pain) Qty: 12 RF: 0
[2020-09-13] MEDS: traMADoL HCL 50 MG TABLET PO (18:56)
--- NOTE | 2020-09-13 20:40 | PC.NURSE ---
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 PT GIVEN PHONE TO CALL HER. PT IS DISCHARGED IN R.
== END 2020-09-13 20:15 | disposition home or self-care (01) ==
PROVIDERS: Emergency Provider Emergency Medicine
DX: S90.111A Contusion of right great toe without damage to nail, initial encounter (principal); S90.411A Abrasion, right great toe, initial encounter; W20.8XXA Other cause of strike by thrown, projected or falling object, initial encounter; Y93.89 Activity, other specified; Y92.9 Unspecified place or not applicable; Y99.9 Unspecified external cause status
CPT/HCPCS: 73660; 99283; 99284

== ENCOUNTER 2020-10-20 09:57 | Outpatient (REF) | payer MEDICARE, SELFPAY ==
--- NOTE | ~2020-10-20 | XR_ITS ---
EXAMINATION: AP STANDING VIEW OF BOTH KNEES WELL LATERAL AND SUNRISE VIEWS OF THE RIGHT KNEE CLINICAL INFORMATION: Right knee pain. COMPARISON: 08/05/2020 and 06/02/2019. TECHNIQUE: Standing AP view of both knees and lateral and sunrise views of the right knee. FINDINGS: Standing views of both knees demonstrate moderate narrowing of the left medial joint space compartment and severe narrowing of the right medial joint space compartment with marginal sclerosis and some spurring. There is also noted to be chondrocalcinosis about the lateral joint space compartment of the left knee. There is prominent spurring about the patellofemoral joint most prominent about the medial facet. Bony density about the anterior joint space measuring approximately 1.1 cm in maximum dimension is seen likely representing a loose body. There is a small right knee effusion. XR/XR knee RT 2V IMPRESSION: Moderate narrowing of the medial joint space compartment of the left knee. Severe degenerative change of the patellofemoral joint and medial joint space of the right knee with small right knee effusion. There has been some progression in narrowing of the medial joint space compartment.
--- NOTE | ~2020-10-20 | XR_ITS ---
EXAMINATION: AP STANDING VIEW OF BOTH KNEES WELL LATERAL AND SUNRISE VIEWS OF THE RIGHT KNEE CLINICAL INFORMATION: Right knee pain. COMPARISON: 08/05/2020 and 06/02/2019. TECHNIQUE: Standing AP view of both knees and lateral and sunrise views of the right knee. FINDINGS: Standing views of both knees demonstrate moderate narrowing of the left medial joint space compartment and severe narrowing of the right medial joint space compartment with marginal sclerosis and some spurring. There is also noted to be chondrocalcinosis about the lateral joint space compartment of the left knee. There is prominent spurring about the patellofemoral joint most prominent about the medial facet. Bony density about the anterior joint space measuring approximately 1.1 cm in maximum dimension is seen likely representing a loose body. There is a small right knee effusion. XR/XR knee standing BI IMPRESSION: Moderate narrowing of the medial joint space compartment of the left knee. Severe degenerative change of the patellofemoral joint and medial joint space of the right knee with small right knee effusion. There has been some progression in narrowing of the medial joint space compartment.
== END 2020-10-20 09:58 | disposition home or self-care (01) ==
LOC: HO.HOSX 09:57
PROVIDERS: Visit Provider Physician Assistant
DX: M17.11 Unilateral primary osteoarthritis, right knee (principal)
CPT/HCPCS: 73560; 73565; 99202

== ENCOUNTER 2020-11-10 14:22 | Outpatient (REF) | payer MEDICARE, SELFPAY ==
[2020-11-10 16:59] LABS: Urine Cytology See Pathology rpt
== END 2020-11-10 14:23 | disposition home or self-care (01) ==
LOC: HO.LNP 14:22
PROVIDERS: Visit Provider Urology
DX: C67.9 Malignant neoplasm of bladder, unspecified (principal); N40.1 Benign prostatic hyperplasia with lower urinary tract symptoms; R39.12 Poor urinary stream; N32.81 Overactive bladder
CPT/HCPCS: 51798; 88112; 99212

== ENCOUNTER 2021-10-29 18:07 | Emergency (ER) | payer OTHER, SELFPAY ==
--- NOTE | ~2021-10-29 | CT_ITS ---
EXAMINATION: CT HEAD WITHOUT CONTRAST CT CERVICAL SPINE WITHOUT CONTRAST CLINICAL INFORMATION: Fall COMPARISON: Head CT 06/22/2020. Cervical spine MRI 07/03/2018 TECHNIQUE: A noncontrast CT of the head and a noncontrast CT of the cervical spine with sagittal and coronal reformats. This CT examination was performed using dose optimization techniques as appropriate, variously including the following: *Automated exposure control *Adjustment of mA and/or kV according to patient size (this includes techniques or standardized protocols for targeted exams where dose is matched to indication/reason for exam; i.e. extremities or head) *Use of iterative reconstruction technique DLP: 1025 FINDINGS: No intra-axial or extra-axial hemorrhage. No acute territorial infarct. Chronic small vessel ischemic disease of the periventricular white matter, not significantly changed. Preservation of contreras-white matter differentiation. No mass, mass effect, or midline shift. No fracture. The mastoid air cells and visualized paranasal sinuses are clear. Moderate to severe multilevel spondylosis of the cervical spine with reversal of normal cervical lordosis and severe multilevel facet arthropathy which does not appear significantly changed. No fracture. No prevertebral soft tissue swelling. CT/CT cervical spine wo con IMPRESSION: No acute intracranial abnormality. Chronic microangiopathy. No cervical spine fracture or traumatic subluxation.
--- NOTE | ~2021-10-29 | XR_ITS ---
EXAMINATION: XR CHEST CLINICAL INFORMATION: Fall, weakness COMPARISON: 06/22/2020 TECHNIQUE: 2 views of the chest were obtained. FINDINGS: No focal consolidation, pulmonary edema, or pleural effusion. Chronic scarring at the anterior inferior aspect of the right middle lobe. Stable cardiomediastinal silhouette. XR/XR chest 2V IMPRESSION: No acute cardiopulmonary findings.
--- NOTE | ~2021-10-29 | CT_ITS ---
EXAMINATION: CT HEAD WITHOUT CONTRAST CT CERVICAL SPINE WITHOUT CONTRAST CLINICAL INFORMATION: Fall COMPARISON: Head CT 06/22/2020. Cervical spine MRI 07/03/2018 TECHNIQUE: A noncontrast CT of the head and a noncontrast CT of the cervical spine with sagittal and coronal reformats. This CT examination was performed using dose optimization techniques as appropriate, variously including the following: *Automated exposure control *Adjustment of mA and/or kV according to patient size (this includes techniques or standardized protocols for targeted exams where dose is matched to indication/reason for exam; i.e. extremities or head) *Use of iterative reconstruction technique DLP: 1025 FINDINGS: No intra-axial or extra-axial hemorrhage. No acute territorial infarct. Chronic small vessel ischemic disease of the periventricular white matter, not significantly changed. Preservation of contreras-white matter differentiation. No mass, mass effect, or midline shift. No fracture. The mastoid air cells and visualized paranasal sinuses are clear. Moderate to severe multilevel spondylosis of the cervical spine with reversal of normal cervical lordosis and severe multilevel facet arthropathy which does not appear significantly changed. No fracture. No prevertebral soft tissue swelling. CT/CT head/brain wo con IMPRESSION: No acute intracranial abnormality. Chronic microangiopathy. No cervical spine fracture or traumatic subluxation.
[2021-10-29 18:21] VITALS: BP 109/59; BP 90/60; PULSE 101; PULSE 79; RESP 20; TEMP 36.6; O2SAT 96; O2SAT 97; BMI 25.0
--- NOTE | 2021-10-29 19:08 | ECG_ITS ---
Test Reason : WEAKNESS Blood Pressure : / mmHG Vent. Rate : 070 BPM Atrial Rate : 070 BPM P-R Int : 126 ms QRS Dur : 134 ms QT Int : 422 ms P-R-T Axes : 051 -65 075 degrees QTc Int : 455 ms Normal sinus rhythm Left axis deviation Non-specific intra-ventricular conduction block Minimal voltage criteria for LVH, may be normal variant ( Ulysses product ) Nonspecific T wave abnormality Abnormal ECG When compared with ECG of 22-JUN-2020 21:51, T wave inversion no longer evident in Inferior leads Nonspecific T wave abnormality, worse in Lateral leads Referred By: Leonela Starkey Electronically Signed By:COURTNEY LUGO MD
[2021-10-29 19:53] LABS: MANUAL DIFF FLAG NO
[2021-10-29 19:54] LABS: Basophils Percent Auto 0.1 % (0-2); Eosinophils Percent Auto 0.3 % (0-4); Hematocrit 35.3 % (42.0-52.0); Hemoglobin 11.5 g/dl (14.0-18.0); Imm Gran Abs Auto 0.04 X10*3/uL (0.00-0.03); Imm Gran Pct Auto 0.4 % (0.0-0.4); Lymphocytes Absolute Auto 0.6 X10*3/uL (1.2-4.9); Lymphocytes Percent Auto 6.5 % (20-40); Mean Corpuscular HGB Conc 32.6 g/dl (31.0-36.0); Mean Corpuscular Hemoglobin 27.3 pg (27.0-33.0); Mean Corpuscular Volume 83.6 fL (80.0-98.0); Mean Platelet Volume 11.2 fL (9.4-12.4); Monocytes Absolute Auto 0.8 X10*3/uL (0.1-1.2); Monocytes Percent Auto 8.4 % (2-11); Neutrophils Absolute Auto 8.3 x10*3/uL (2.0-8.3); Neutrophils Percent Auto 84.3 % (45-73); Platelet Count 151 X10*3/uL (160-400); Red Blood Count 4.22 X10*6/uL (4.60-5.80); White Blood Count 9.9 X10*3/uL (4.8-10.8)
[2021-10-29 20:00] VITALS: BP 109/60; PULSE 72; RESP 14; O2SAT 97
[2021-10-29 20:12] LABS: Troponin-I High Sensitivity 11.1 ng/L (<3.5-35.0)
[2021-10-29 20:38] LABS: COVID-19 Test Negative (Negative)
--- NOTE | 2021-10-29 20:43 | ED.FALL ---
HPI - Fall General Chief Complaint: Fall <Leonela Starkey DAT - Last Filed: 10/29/21 21:21> Stated Complaint: fall <Leonela Starkey CNP - Last Filed: 10/29/21 21:21> Time Seen by Provider: 10/29/21 18:24 <Leonela StarkeyDAT - Last Filed: 10/29/21 21:21> Source: patient <Leonela Starkey DAT - Last Filed: 10/29/21 21:21> Mode of arrival: EMS <Leonela Starkey DAT - Last Filed: 10/29/21 21:21> Limitations: altered mental status <Leonela Starkey DAT - Last Filed: 10/29/21 21:21> History of Present Illness HPI Narrative: Patient presents to the emergency department via EMS, he was found by bystanders to be lying on the sidewalk, appearing to obstruct the back of his head is there is a small bump present. Was placed in a hard C-spine collar and transferred here. Upon talking with the patient he is a very vague historian. When asked what happened he states I was here. When questioned further he reports that there were people were unknown to him who were doing things to his hair. He is unable to provide any details surrounding the fall. When asked whether he has family or someone that we could contact he provides the name Georgiana, who is his [employer] in the home <Leonela Starkey CNP - Last Filed: 10/29/21 21:21> Related Data Home Medications: Home Medications Medication Instructions Recorded Confirmed aspirin 81 mg tablet,delayed 81 mg PO DAILY 10/20/20 10/30/21 release bictegravir 50 mg-emtricitabine 1 tab PO DAILY 10/20/20 10/30/21 200 mg-tenofovir alafenam 25 mg tablet (Biktarvy) citalopram 20 mg tablet 20 mg PO DAILY 10/20/20 10/30/21 docusate sodium 100 mg capsule 100 mg PO BID 10/20/20 10/30/21 famotidine 20 mg tablet 20 mg PO DAILY 10/20/20 10/30/21 umeclidinium 62.5 mcg/actuation 1 inh inhalation DAILY 10/20/20 10/30/21 blister powder for inhalation (Incruse Ellipta) albuterol sulfate 90 mcg/actuation 2 puff inhalation Q4H PRN 11/10/20 10/30/21 aerosol inhaler Respiratory Distress ammonium lactate 12 % topical cream 1 appl topical BID 11/10/20 10/30/21 blood sugar diagnostic (FreeStyle #10 ea 11/10/20 Lite Strips) lancets 28 gauge (FreeStyle #100 ea 11/10/20 Lancets) lancets 33 gauge (TRUEplus Lancets) #100 ea 11/10/20 lisinopril 5 mg tablet 5 mg PO DAILY 11/10/20 10/30/21 metformin 500 mg tablet 500 mg PO DAILY 11/10/20 10/30/21 multivitamin 1 tab PO QPM 11/10/20 10/30/21 oxybutynin chloride 10 mg 10 mg PO DAILY 11/10/20 10/30/21 tablet,extended release 24 hr sennosides 8.6 mg tablet (senna) 17.2 mg PO DAILY 11/10/20 10/30/21 acetaminophen 325 mg tablet 650 mg PO Q6H PRN Fever Or Pain 10/30/21 10/30/21 atorvastatin 40 mg tablet 40 mg PO BEDTIME 10/30/21 10/30/21 lidocaine 5 % topical patch 1 patch topical DAILY 10/30/21 10/30/21 tamsulosin 0.4 mg capsule 0.4 mg PO DAILY 10/30/21 10/30/21 <Leonela Starkey CNP - Last Filed: 10/29/21 21:21> Allergies/Adverse Reactions: Allergies Allergy/AdvReac Type Severity Reaction Status Date / Time No Known Allergies Allergy Verified 11/10/20 14:39 <Leonela Starkey CNP - Last Filed: 10/29/21 21:21> Review of Systems Review of Systems: Yes Unobtainable due to mental status <Leonela Starkey CNP - Last Filed: 10/29/21 21:21> [facility] Past Medical History Attestation statement: The following information was validated with the patient. <Leonela Starkey CNP - Last Filed: 10/29/21 21:21> Source: old records reviewed <Leonela Starkey CNP - Last Filed: 10/29/21 21:21> Medical History: Medical History Bladder cancer BPH (benign prostatic hyperplasia) Confusion COPD (chronic obstructive pulmonary disease) Diabetes mellitus Hepatitis B HIV disease Osteoarthritis of right knee <Leonela Starkey CNP - Last Filed: 10/29/21 21:21> Social History Social History: Social History Alcohol intake: never Patient Tobacco Use Status: Never used Tobacco Use of substances other than those prescribed or required for medical reasons: No Advance Directives: No Advance Directives Information Provided: Yes Current occupational status: retired <Leonela Starkey CNP - Last Filed: 10/29/21 21:21> Physical Exam Vital Signs: Vital Signs: Last Vital Signs Temp 97.4 F 10/30/21 07:04 Pulse 74 10/30/21 07:04 Resp 14 10/30/21 07:04 BP 127/78 10/30/21 07:04 Pulse Ox 95 10/30/21 07:04 O2 Del Method 10/30/21 07:04 BMI result Body Mass Index 25.0 <Leonela Starkey CNP - Last Filed: 10/29/21 21:21> Vital Signs: Last Vital Signs Temp 97.4 F 10/30/21 07:04 Pulse 74 10/30/21 07:04 Resp 14 10/30/21 07:04 BP 127/78 10/30/21 07:04 Pulse Ox 95 10/30/21 07:04 O2 Del Method 10/30/21 07:04 BMI result Body Mass Index 25.0 <Mamadou Angulo MD - Last Filed: 10/30/21 09:11> Vital Signs: Last Vital Signs Temp 97.4 F 10/30/21 07:04 Pulse 74 10/30/21 07:04 Resp 14 10/30/21 07:04 BP 127/78 10/30/21 07:04 Pulse Ox 95 10/30/21 07:04 O2 Del Method 10/30/21 07:04 BMI result Body Mass Index 25.0 <Edwige Kate NP - Last Filed: 10/30/21 13:17> Appearance: Alert.? Disoriented to place time and event. No acute distress.? Head: Contusion to the occiput, no lacerations. No palpable deformities. Eyes: Pupils equal, round and reactive to light.? EOMI. No nystagmus. ENT: Pharynx normal.?? Neck: Normal inspection.? Neck supple.??No midline cervical spine tenderness, step-offs, deformities CVS: Heart sounds normal. Normal heart rate and rhythm.? Pulses normal.?? Respiratory: No respiratory distress.? Lung sounds clear to auscultation bilaterally?? Abdomen: Soft and non-tender. Normoactive bowel sounds. Skin: Skin warm and dry.? Normal skin color.? Normal skin turgor.?? Extremities: No lower extremity edema.? No calf ttp? Neuro: Moves all extremities spontaneously. Sensation intact bilaterally. CN II-XII intact. No focal neuro deficits. <Leonela Starkey CNP - Last Filed: 10/29/21 21:21> Course Course Course Narrative: Patient is a 75-year-old male with a past medical history of bladder cancer, BPH, COPD, diabetes, HIV, hepatitis, and dementia presents emergency department after being found down on the ground outdoors by bystanders. Aside from the contusion to his occiput physical exam is overall unremarkable moving all extremities independently, in no apparent distress, vital signs are stable, no focal neurological findings. Contacted patient's [employer] Georgiana, she does states that he is confused at baseline due to dementia, she does not believe that he is on any blood thinners, was reportedly being treated for urinary tract infection last week by his primary care provider. He lives alone in [place]. She states it is not typical for him to wonder outdoors on his own. At this time it is unclear exactly where he was in relation to his home or what happened, precipitating events leading up to the fall. She does report that he has a remote history of drug abuse but not current. <Leonela Starkey CNP - Last Filed: 10/29/21 21:21> Reevaluation(s) Reevaluation #1: Head CT reveals no acute intracranial abnormality, chronic microangiopathy is noted no cervical spine fractures or dislocation. Heart C-spine collar removed. CBC reveals normocytic anemia consistent with baseline, mild thrombocytopenia consistent with baseline, no leukocytosis. <Leonela Schmid DAT Starkey - Last Filed: 10/29/21 21:21> Time: 20:49 <Leonela Schmid DAT Starkey - Last Filed: 10/29/21 21:21> Reevaluation #2: Patient signed out to Dr. Angulo pending chemistries, CPK, EKG, urinalysis, chest x-ray. Disposition pending results. <Leonela Schmid DAT Starkey - Last Filed: 10/29/21 21:21> Time: 21:19 <Leonela Gloriaperico Starkey CNP - Last Filed: 10/29/21 21:21> Reevaluation #3: 0235: I assumed care of this patient from my colleague, nurse practitioner Leonela Gagnon at 21:00 hours pending the patient's laboratory and radiology studies. Patient's CBC was normal except for low platelet count of a [id number]. The 1st troponin was 11.1 and the 3 hour repeat the troponin was 7.7. COVID-19 was negative. CK was only slightly elevated at 249 urinalysis was negative. Patient's BUN and creatinine were elevated at 32 and a creatinine of 2.67. The patient's baseline BUN creatinine from 06/22/2020 was 15 and 1.08. Chest x-ray was unremarkable in urinalysis was unremarkable. Twelve EKG was unremarkable as well. Given these findings, I believe the patient may and dehydrated volume depleted therefore he is ordered to get normal saline IV x2 L. I will repeat a BMP in a there is improvement the patient will be kept in the emergency department for case management and PT evaluation. <Mamadou Angulo MD - Last Filed: 10/30/21 09:11> Time: 02:35 <Mamadou Angulo MD - Last Filed: 10/30/21 09:11> Additional Reevaluation(s): 0904: The patient's repeat BMP is pending. At the end of my shift, patient's care was turned over to my colleague, nurse practitioner Dolly Kate. <Mamadou Angulo MD - Last Filed: 10/30/21 09:11> 0904: The patient's repeat BMP is pending. At the end of my shift, patient's care was turned over to my colleague, nurse practitioner Dolly Kate. 1200- the patient had a total of 3 L of fluid in his renal function is much improved. This is likely from some dehydration as the patient had spent some time outside. He is tolerating fluids and can orally hydrate from this point forward. He was seen by case management who discussed his care with his providers. He has quite a bit of resources at home including physical therapy and visiting nurses. His desire is to be at home which is in agreement with his providers. Therefore the plan is for patient to be discharged home to continue with his outpatient resources. <Edwige Kate NP - Last Filed: 10/30/21 13:17> MDM - Fall Medical Records Attestation: I reviewed the patient's medical records. <Leonela Starkey CNP - Last Filed: 10/29/21 21:21> I reviewed the patient's medical records. <Mamadou Angulo MD - Last Filed: 10/30/21 09:11> Lab Data Attestation: I reviewed the patient's lab results. <Leonela Starkey CNP - Last Filed: 10/29/21 21:21> Result diagrams: : 10/29/21 19:47 10/30/21 12:11 <Leonela Starkey CNP - Last Filed: 10/29/21 21:21> Labs: Lab Results 10/29/21 10/29/21 10/29/21 Range/Units 19:47 19:47 19:47 WBC 9.9 (4.8-10.8) X10*3/uL RBC 4.22 L (4.60-5.80) X10*6/uL Hgb 11.5 L (14.0-18.0) g/dl Hct 35.3 L (42.0-52.0) % MCV 83.6 (80.0-98.0) fL MCH 27.3 (27.0-33.0) pg MCHC 32.6 (31.0-36.0) g/dl RDW 14.0 (11.0-16.0) % Plt Count 151 L (160-400) X10*3/uL MPV 11.2 (9.4-12.4) fL Immature Gran % (Auto) 0.4 (0.0-0.4) % Neut % (Auto) 84.3 H (45-73) % Lymph % (Auto) 6.5 L (20-40) % [place] % (Auto) 8.4 (2-11) % Eos % (Auto) 0.3 (0-4) % Baso % (Auto) 0.1 (0-2) % Lymph # (Auto) 0.6 L (1.2-4.9) X10*3/uL [place] # (Auto) 0.8 (0.1-1.2) X10*3/uL Eos # (Auto) 0.0 (0.0-0.4) X10*3/uL Baso # (Auto) 0.0 (0.0-0.2) X10*3/uL Abs Immat Gran (auto) 0.04 H (0.00-0.03) X10*3/uL Absolute Neuts (auto) 8.3 (2.0-8.3) x10*3/uL Absolute Nucleated RBC 0.000 (0.0-0.012) X10*3/uL Nucleated RBC % (auto) 0.0 (0.0-0.2) /100WBC Sodium (135-145) mmol/L Potassium (3.3-5.1) mmol/L Chloride (96-108) mmol/L Carbon Dioxide (22-29) mmol/L Anion Gap (12-20) BUN (9-16) mg/dL Creatinine (0.5-1.4) mg/dL Estim Creat Clear Calc Estimated GFR Random Glucose (60-115) mg/dL Calcium (8.4-10.2) mg/dL Magnesium (1.6-2.6) mg/dL Total Bilirubin (0.0-1.0) mg/dL AST (5-37) U/L ALT (0-40) U/L Alkaline Phosphatase (39-117) U/L Total Creatine Kinase (38-174) U/L Troponin I High Sens 11.1 (<3.5-35.0) ng/L Total Protein (6.5-8.0) g/dL Albumin (3.5-5.0) g/dL Urine Color Urine Appearance Urine pH (5.0-8.0) Ur Specific Thatcher (1.005-1.025) Urine Protein (NEG-TRACE) MG/DL Urine Glucose (UA) (NEG) MG/DL Urine Ketones (NEG) MG/DL Urine Blood (NEG) Urine Nitrite (NEG) Ur Leukocyte Esterase (NEG) Urine Opiates Screen (Not Detect) Urine Fentanyl Screen (Not Detect) Ur Barbiturates Screen (Not Detect) Ur Phencyclidine Scrn (Not Detect) Ur Amphetamines Screen (Not Detect) U Benzodiazepines Scrn (Not Detect) Urine Cocaine Screen (Not Detect) U Marijuana (THC) Screen (Not Detect) Ethyl Alcohol mg/dL COVID-19 (COOKIE) Negative (Negative) COVID-19 Clin Com See Note 10/29/21 10/29/21 10/30/21 Range/Units 23:32 23:32 00:45 WBC (4.8-10.8) X10*3/uL RBC (4.60-5.80) X10*6/uL Hgb (14.0-18.0) g/dl Hct (42.0-52.0) % MCV (80.0-98.0) fL MCH (27.0-33.0) pg MCHC (31.0-36.0) g/dl RDW (11.0-16.0) % Plt Count (160-400) X10*3/uL MPV (9.4-12.4) fL Immature Gran % (Auto) (0.0-0.4) % Neut % (Auto) (45-73) % Lymph % (Auto) (20-40) % [place] % (Auto) (2-11) % Eos % (Auto) (0-4) % Baso % (Auto) (0-2) % Lymph # (Auto) (1.2-4.9) X10*3/uL [place] # (Auto) (0.1-1.2) X10*3/uL Eos # (Auto) (0.0-0.4) X10*3/uL Baso # (Auto) (0.0-0.2) X10*3/uL Abs Immat Gran (auto) (0.00-0.03) X10*3/uL Absolute Neuts (auto) (2.0-8.3) x10*3/uL Absolute Nucleated RBC (0.0-0.012) X10*3/uL Nucleated RBC % (auto) (0.0-0.2) /100WBC Sodium 138 (135-145) mmol/L Potassium 4.4 (3.3-5.1) mmol/L Chloride 103 (96-108) mmol/L Carbon Dioxide 24 (22-29) mmol/L Anion Gap 15 (12-20) BUN 32 H (9-16) mg/dL Creatinine 2.67 H (0.5-1.4) mg/dL Estim Creat Clear Calc 21.1 Estimated GFR 24 Random Glucose 154 H D (60-115) mg/dL Calcium 9.1 (8.4-10.2) mg/dL Magnesium 1.6 (1.6-2.6) mg/dL Total Bilirubin 0.7 (0.0-1.0) mg/dL AST 30 (5-37) U/L ALT 22 (0-40) U/L Alkaline Phosphatase 59 D (39-117) U/L Total Creatine Kinase 249 H (38-174) U/L Troponin I High Sens 7.7 (<3.5-35.0) ng/L Total Protein 6.6 (6.5-8.0) g/dL Albumin 4.3 (3.5-5.0) g/dL Urine Color YELLOW Urine Appearance CLEAR Urine pH 5.5 (5.0-8.0) Ur Specific Thatcher 1.020 (1.005-1.025) Urine Protein NEG (NEG-TRACE) MG/DL Urine Glucose (UA) NEG (NEG) MG/DL Urine Ketones NEG (NEG) MG/DL Urine Blood NEG (NEG) Urine Nitrite NEG (NEG) Ur Leukocyte Esterase NEG (NEG) Urine Opiates Screen (Not Detect) Urine Fentanyl Screen (Not Detect) Ur Barbiturates Screen (Not Detect) Ur Phencyclidine Scrn (Not Detect) Ur Amphetamines Screen (Not Detect) U Benzodiazepines Scrn (Not Detect) Urine Cocaine Screen (Not Detect) U Marijuana (THC) Screen (Not Detect) Ethyl Alcohol < 10 mg/dL COVID-19 (COOKIE) (Negative) COVID-19 Clin Com 10/30/21 10/30/21 10/30/21 Range/Units 00:45 08:24 12:11 WBC (4.8-10.8) X10*3/uL RBC (4.60-5.80) X10*6/uL Hgb (14.0-18.0) g/dl Hct (42.0-52.0) % MCV (80.0-98.0) fL MCH (27.0-33.0) pg MCHC (31.0-36.0) g/dl RDW (11.0-16.0) % Plt Count (160-400) X10*3/uL MPV (9.4-12.4) fL Immature Gran % (Auto) (0.0-0.4) % Neut % (Auto) (45-73) % Lymph % (Auto) (20-40) % [place] % (Auto) (2-11) % Eos % (Auto) (0-4) % Baso % (Auto) (0-2) % Lymph # (Auto) (1.2-4.9) X10*3/uL [place] # (Auto) (0.1-1.2) X10*3/uL Eos # (Auto) (0.0-0.4) X10*3/uL Baso # (Auto) (0.0-0.2) X10*3/uL Abs Immat Gran (auto) (0.00-0.03) X10*3/uL Absolute Neuts (auto) (2.0-8.3) x10*3/uL Absolute Nucleated RBC (0.0-0.012) X10*3/uL Nucleated RBC % (auto) (0.0-0.2) /100WBC Sodium 141 141 (135-145) mmol/L Potassium 4.9 4.4 (3.3-5.1) mmol/L Chloride 108 110 H (96-108) mmol/L Carbon Dioxide 28 26 (22-29) mmol/L Anion Gap 10 L 9 L (12-20) BUN 25 H 22 H (9-16) mg/dL Creatinine 1.75 H 1.51 H (0.5-1.4) mg/dL Estim Creat Clear Calc 32.2 37.3 Estimated GFR 38 45 Random Glucose 91 D 85 (60-115) mg/dL Calcium 8.5 D 8.2 L (8.4-10.2) mg/dL Magnesium (1.6-2.6) mg/dL Total Bilirubin (0.0-1.0) mg/dL AST (5-37) U/L ALT (0-40) U/L Alkaline Phosphatase (39-117) U/L Total Creatine Kinase (38-174) U/L Troponin I High Sens (<3.5-35.0) ng/L Total Protein (6.5-8.0) g/dL Albumin (3.5-5.0) g/dL Urine Color Urine Appearance Urine pH (5.0-8.0) Ur Specific Thatcher (1.005-1.025) Urine Protein (NEG-TRACE) MG/DL Urine Glucose (UA) (NEG) MG/DL Urine Ketones (NEG) MG/DL Urine Blood (NEG) Urine Nitrite (NEG) Ur Leukocyte Esterase (NEG) Urine Opiates Screen Not Detected (Not Detect) Urine Fentanyl Screen Not Detected (Not Detect) Ur Barbiturates Screen Not Detected (Not Detect) Ur Phencyclidine Scrn Not Detected (Not Detect) Ur Amphetamines Screen Not Detected (Not Detect) U Benzodiazepines Scrn Not Detected (Not Detect) Urine Cocaine Screen Not Detected (Not Detect) U Marijuana (THC) Screen Not Detected (Not Detect) Ethyl Alcohol mg/dL COVID-19 (COOKIE) (Negative) COVID-19 Clin Com <Leonela Starkey CNP - Last Filed: 10/29/21 21:21> Lab Results 10/29/21 10/29/21 10/29/21 Range/Units 19:47 19:47 19:47 WBC 9.9 (4.8-10.8) X10*3/uL RBC 4.22 L (4.60-5.80) X10*6/uL Hgb 11.5 L (14.0-18.0) g/dl Hct 35.3 L (42.0-52.0) % MCV 83.6 (80.0-98.0) fL MCH 27.3 (27.0-33.0) pg MCHC 32.6 (31.0-36.0) g/dl RDW 14.0 (11.0-16.0) % Plt Count 151 L (160-400) X10*3/uL MPV 11.2 (9.4-12.4) fL Immature Gran % (Auto) 0.4 (0.0-0.4) % Neut % (Auto) 84.3 H (45-73) % Lymph % (Auto) 6.5 L (20-40) % [place] % (Auto) 8.4 (2-11) % Eos % (Auto) 0.3 (0-4) % Baso % (Auto) 0.1 (0-2) % Lymph # (Auto) 0.6 L (1.2-4.9) X10*3/uL [place] # (Auto) 0.8 (0.1-1.2) X10*3/uL Eos # (Auto) 0.0 (0.0-0.4) X10*3/uL Baso # (Auto) 0.0 (0.0-0.2) X10*3/uL Abs Immat Gran (auto) 0.04 H (0.00-0.03) X10*3/uL Absolute Neuts (auto) 8.3 (2.0-8.3) x10*3/uL Absolute Nucleated RBC 0.000 (0.0-0.012) X10*3/uL Nucleated RBC % (auto) 0.0 (0.0-0.2) /100WBC Sodium (135-145) mmol/L Potassium (3.3-5.1) mmol/L Chloride (96-108) mmol/L Carbon Dioxide (22-29) mmol/L Anion Gap (12-20) BUN (9-16) mg/dL Creatinine (0.5-1.4) mg/dL Estim Creat Clear Calc Estimated GFR Random Glucose (60-115) mg/dL Calcium (8.4-10.2) mg/dL Magnesium (1.6-2.6) mg/dL Total Bilirubin (0.0-1.0) mg/dL AST (5-37) U/L ALT (0-40) U/L Alkaline Phosphatase (39-117) U/L Total Creatine Kinase (38-174) U/L Troponin I High Sens 11.1 (<3.5-35.0) ng/L Total Protein (6.5-8.0) g/dL Albumin (3.5-5.0) g/dL Urine Color Urine Appearance Urine pH (5.0-8.0) Ur Specific Thatcher (1.005-1.025) Urine Protein (NEG-TRACE) MG/DL Urine Glucose (UA) (NEG) MG/DL Urine Ketones (NEG) MG/DL Urine Blood (NEG) Urine Nitrite (NEG) Ur Leukocyte Esterase (NEG) Urine Opiates Screen (Not Detect) Urine Fentanyl Screen (Not Detect) Ur Barbiturates Screen (Not Detect) Ur Phencyclidine Scrn (Not Detect) Ur Amphetamines Screen (Not Detect) U Benzodiazepines Scrn (Not Detect) Urine Cocaine Screen (Not Detect) U Marijuana (THC) Screen (Not Detect) Ethyl Alcohol mg/dL COVID-19 (COOKIE) Negative (Negative) COVID-19 Clin Com See Note 10/29/21 10/29/21 10/30/21 Range/Units 23:32 23:32 00:45 WBC (4.8-10.8) X10*3/uL RBC (4.60-5.80) X10*6/uL Hgb (14.0-18.0) g/dl Hct (42.0-52.0) % MCV (80.0-98.0) fL MCH (27.0-33.0) pg MCHC (31.0-36.0) g/dl RDW (11.0-16.0) % Plt Count (160-400) X10*3/uL MPV (9.4-12.4) fL Immature Gran % (Auto) (0.0-0.4) % Neut % (Auto) (45-73) % Lymph % (Auto) (20-40) % [place] % (Auto) (2-11) % Eos % (Auto) (0-4) % Baso % (Auto) (0-2) % Lymph # (Auto) (1.2-4.9) X10*3/uL [place] # (Auto) (0.1-1.2) X10*3/uL Eos # (Auto) (0.0-0.4) X10*3/uL Baso # (Auto) (0.0-0.2) X10*3/uL Abs Immat Gran (auto) (0.00-0.03) X10*3/uL Absolute Neuts (auto) (2.0-8.3) x10*3/uL Absolute Nucleated RBC (0.0-0.012) X10*3/uL Nucleated RBC % (auto) (0.0-0.2) /100WBC Sodium 138 (135-145) mmol/L Potassium 4.4 (3.3-5.1) mmol/L Chloride 103 (96-108) mmol/L Carbon Dioxide 24 (22-29) mmol/L Anion Gap 15 (12-20) BUN 32 H (9-16) mg/dL Creatinine 2.67 H (0.5-1.4) mg/dL Estim Creat Clear Calc 21.1 Estimated GFR 24 Random Glucose 154 H D (60-115) mg/dL Calcium 9.1 (8.4-10.2) mg/dL Magnesium 1.6 (1.6-2.6) mg/dL Total Bilirubin 0.7 (0.0-1.0) mg/dL AST 30 (5-37) U/L ALT 22 (0-40) U/L Alkaline Phosphatase 59 D (39-117) U/L Total Creatine Kinase 249 H (38-174) U/L Troponin I High Sens 7.7 (<3.5-35.0) ng/L Total Protein 6.6 (6.5-8.0) g/dL Albumin 4.3 (3.5-5.0) g/dL Urine Color YELLOW Urine Appearance CLEAR Urine pH 5.5 (5.0-8.0) Ur Specific Thatcher 1.020 (1.005-1.025) Urine Protein NEG (NEG-TRACE) MG/DL Urine Glucose (UA) NEG (NEG) MG/DL Urine Ketones NEG (NEG) MG/DL Urine Blood NEG (NEG) Urine Nitrite NEG (NEG) Ur Leukocyte Esterase NEG (NEG) Urine Opiates Screen (Not Detect) Urine Fentanyl Screen (Not Detect) Ur Barbiturates Screen (Not Detect) Ur Phencyclidine Scrn (Not Detect) Ur Amphetamines Screen (Not Detect) U Benzodiazepines Scrn (Not Detect) Urine Cocaine Screen (Not Detect) U Marijuana (THC) Screen (Not Detect) Ethyl Alcohol < 10 mg/dL COVID-19 (COOKIE) (Negative) COVID-19 Clin Com 10/30/21 10/30/21 10/30/21 Range/Units 00:45 08:24 12:11 WBC (4.8-10.8) X10*3/uL RBC (4.60-5.80) X10*6/uL Hgb (14.0-18.0) g/dl Hct (42.0-52.0) % MCV (80.0-98.0) fL MCH (27.0-33.0) pg MCHC (31.0-36.0) g/dl RDW (11.0-16.0) % Plt Count (160-400) X10*3/uL MPV (9.4-12.4) fL Immature Gran % (Auto) (0.0-0.4) % Neut % (Auto) (45-73) % Lymph % (Auto) (20-40) % [place] % (Auto) (2-11) % Eos % (Auto) (0-4) % Baso % (Auto) (0-2) % Lymph # (Auto) (1.2-4.9) X10*3/uL [place] # (Auto) (0.1-1.2) X10*3/uL Eos # (Auto) (0.0-0.4) X10*3/uL Baso # (Auto) (0.0-0.2) X10*3/uL Abs Immat Gran (auto) (0.00-0.03) X10*3/uL Absolute Neuts (auto) (2.0-8.3) x10*3/uL Absolute Nucleated RBC (0.0-0.012) X10*3/uL Nucleated RBC % (auto) (0.0-0.2) /100WBC Sodium 141 141 (135-145) mmol/L Potassium 4.9 4.4 (3.3-5.1) mmol/L Chloride 108 110 H (96-108) mmol/L Carbon Dioxide 28 26 (22-29) mmol/L Anion Gap 10 L 9 L (12-20) BUN 25 H 22 H (9-16) mg/dL Creatinine 1.75 H 1.51 H (0.5-1.4) mg/dL Estim Creat Clear Calc 32.2 37.3 Estimated GFR 38 45 Random Glucose 91 D 85 (60-115) mg/dL Calcium 8.5 D 8.2 L (8.4-10.2) mg/dL Magnesium (1.6-2.6) mg/dL Total Bilirubin (0.0-1.0) mg/dL AST (5-37) U/L ALT (0-40) U/L Alkaline Phosphatase (39-117) U/L Total Creatine Kinase (38-174) U/L Troponin I High Sens (<3.5-35.0) ng/L Total Protein (6.5-8.0) g/dL Albumin (3.5-5.0) g/dL Urine Color Urine Appearance Urine pH (5.0-8.0) Ur Specific [place] (1.005-1.025) Urine Protein (NEG-TRACE) MG/DL Urine Glucose (UA) (NEG) MG/DL Urine Ketones (NEG) MG/DL Urine Blood (NEG) Urine Nitrite (NEG) Ur Leukocyte Esterase (NEG) Urine Opiates Screen Not Detected (Not Detect) Urine Fentanyl Screen Not Detected (Not Detect) Ur Barbiturates Screen Not Detected (Not Detect) Ur Phencyclidine Scrn Not Detected (Not Detect) Ur Amphetamines Screen Not Detected (Not Detect) U Benzodiazepines Scrn Not Detected (Not Detect) Urine Cocaine Screen Not Detected (Not Detect) U Marijuana (THC) Screen Not Detected (Not Detect) Ethyl Alcohol mg/dL COVID-19 ([facility]) (Negative) COVID-19 Clin Com <Mamadou Angulo MD - Last Filed: 10/30/21 09:11> Lab Results 10/29/21 10/29/21 10/29/21 Range/Units 19:47 19:47 19:47 WBC 9.9 (4.8-10.8) X10*3/uL RBC 4.22 L (4.60-5.80) X10*6/uL Hgb 11.5 L (14.0-18.0) g/dl Hct 35.3 L (42.0-52.0) % MCV 83.6 (80.0-98.0) fL MCH 27.3 (27.0-33.0) pg MCHC 32.6 (31.0-36.0) g/dl RDW 14.0 (11.0-16.0) % Plt Count 151 L (160-400) X10*3/uL MPV 11.2 (9.4-12.4) fL Immature Gran % (Auto) 0.4 (0.0-0.4) % Neut % (Auto) 84.3 H (45-73) % Lymph % (Auto) 6.5 L (20-40) % [place] % (Auto) 8.4 (2-11) % Eos % (Auto) 0.3 (0-4) % Baso % (Auto) 0.1 (0-2) % Lymph # (Auto) 0.6 L (1.2-4.9) X10*3/uL [place] # (Auto) 0.8 (0.1-1.2) X10*3/uL Eos # (Auto) 0.0 (0.0-0.4) X10*3/uL Baso # (Auto) 0.0 (0.0-0.2) X10*3/uL Abs Immat Gran (auto) 0.04 H (0.00-0.03) X10*3/uL Absolute Neuts (auto) 8.3 (2.0-8.3) x10*3/uL Absolute Nucleated RBC 0.000 (0.0-0.012) X10*3/uL Nucleated RBC % (auto) 0.0 (0.0-0.2) /100WBC Sodium (135-145) mmol/L Potassium (3.3-5.1) mmol/L Chloride (96-108) mmol/L Carbon Dioxide (22-29) mmol/L Anion Gap (12-20) BUN (9-16) mg/dL Creatinine (0.5-1.4) mg/dL Estim Creat Clear Calc Estimated GFR Random Glucose (60-115) mg/dL Calcium (8.4-10.2) mg/dL Magnesium (1.6-2.6) mg/dL Total Bilirubin (0.0-1.0) mg/dL AST (5-37) U/L ALT (0-40) U/L Alkaline Phosphatase (39-117) U/L Total Creatine Kinase (38-174) U/L Troponin I High Sens 11.1 (<3.5-35.0) ng/L Total Protein (6.5-8.0) g/dL Albumin (3.5-5.0) g/dL Urine Color Urine Appearance Urine pH (5.0-8.0) Ur Specific [place] (1.005-1.025) Urine Protein (NEG-TRACE) MG/DL Urine Glucose (UA) (NEG) MG/DL Urine Ketones (NEG) MG/DL Urine Blood (NEG) Urine Nitrite (NEG) Ur Leukocyte Esterase (NEG) Urine Opiates Screen (Not Detect) Urine Fentanyl Screen (Not Detect) Ur Barbiturates Screen (Not Detect) Ur Phencyclidine Scrn (Not Detect) Ur Amphetamines Screen (Not Detect) U Benzodiazepines Scrn (Not Detect) Urine Cocaine Screen (Not Detect) U Marijuana (THC) Screen (Not Detect) Ethyl Alcohol mg/dL COVID-19 (COOKIE) Negative (Negative) COVID-19 Clin Com See Note 10/29/21 10/29/21 10/30/21 Range/Units 23:32 23:32 00:45 WBC (4.8-10.8) X10*3/uL RBC (4.60-5.80) X10*6/uL Hgb (14.0-18.0) g/dl Hct (42.0-52.0) % MCV (80.0-98.0) fL MCH (27.0-33.0) pg MCHC (31.0-36.0) g/dl RDW (11.0-16.0) % Plt Count (160-400) X10*3/uL MPV (9.4-12.4) fL Immature Gran % (Auto) (0.0-0.4) % Neut % (Auto) (45-73) % Lymph % (Auto) (20-40) % [place] % (Auto) (2-11) % Eos % (Auto) (0-4) % Baso % (Auto) (0-2) % Lymph # (Auto) (1.2-4.9) X10*3/uL [place] # (Auto) (0.1-1.2) X10*3/uL Eos # (Auto) (0.0-0.4) X10*3/uL Baso # (Auto) (0.0-0.2) X10*3/uL Abs Immat Gran (auto) (0.00-0.03) X10*3/uL Absolute Neuts (auto) (2.0-8.3) x10*3/uL Absolute Nucleated RBC (0.0-0.012) X10*3/uL Nucleated RBC % (auto) (0.0-0.2) /100WBC Sodium 138 (135-145) mmol/L Potassium 4.4 (3.3-5.1) mmol/L Chloride 103 (96-108) mmol/L Carbon Dioxide 24 (22-29) mmol/L Anion Gap 15 (12-20) BUN 32 H (9-16) mg/dL Creatinine 2.67 H (0.5-1.4) mg/dL Estim Creat Clear Calc 21.1 Estimated GFR 24 Random Glucose 154 H D (60-115) mg/dL Calcium 9.1 (8.4-10.2) mg/dL Magnesium 1.6 (1.6-2.6) mg/dL Total Bilirubin 0.7 (0.0-1.0) mg/dL AST 30 (5-37) U/L ALT 22 (0-40) U/L Alkaline Phosphatase 59 D (39-117) U/L Total Creatine Kinase 249 H (38-174) U/L Troponin I High Sens 7.7 (<3.5-35.0) ng/L Total Protein 6.6 (6.5-8.0) g/dL Albumin 4.3 (3.5-5.0) g/dL Urine Color YELLOW Urine Appearance CLEAR Urine pH 5.5 (5.0-8.0) Ur Specific [place] 1.020 (1.005-1.025) Urine Protein NEG (NEG-TRACE) MG/DL Urine Glucose (UA) NEG (NEG) MG/DL Urine Ketones NEG (NEG) MG/DL Urine Blood NEG (NEG) Urine Nitrite NEG (NEG) Ur Leukocyte Esterase NEG (NEG) Urine Opiates Screen (Not Detect) Urine Fentanyl Screen (Not Detect) Ur Barbiturates Screen (Not Detect) Ur Phencyclidine Scrn (Not Detect) Ur Amphetamines Screen (Not Detect) U Benzodiazepines Scrn (Not Detect) Urine Cocaine Screen (Not Detect) U Marijuana (THC) Screen (Not Detect) Ethyl Alcohol < 10 mg/dL COVID-19 (COOKIE) (Negative) COVID-19 Clin Com 10/30/21 10/30/21 10/30/21 Range/Units 00:45 08:24 12:11 WBC (4.8-10.8) X10*3/uL RBC (4.60-5.80) X10*6/uL Hgb (14.0-18.0) g/dl Hct (42.0-52.0) % MCV (80.0-98.0) fL MCH (27.0-33.0) pg MCHC (31.0-36.0) g/dl RDW (11.0-16.0) % Plt Count (160-400) X10*3/uL MPV (9.4-12.4) fL Immature Gran % (Auto) (0.0-0.4) % Neut % (Auto) (45-73) % Lymph % (Auto) (20-40) % [place] % (Auto) (2-11) % Eos % (Auto) (0-4) % Baso % (Auto) (0-2) % Lymph # (Auto) (1.2-4.9) X10*3/uL [place] # (Auto) (0.1-1.2) X10*3/uL Eos # (Auto) (0.0-0.4) X10*3/uL Baso # (Auto) (0.0-0.2) X10*3/uL Abs Immat Gran (auto) (0.00-0.03) X10*3/uL Absolute Neuts (auto) (2.0-8.3) x10*3/uL Absolute Nucleated RBC (0.0-0.012) X10*3/uL Nucleated RBC % (auto) (0.0-0.2) /100WBC Sodium 141 141 (135-145) mmol/L Potassium 4.9 4.4 (3.3-5.1) mmol/L Chloride 108 110 H (96-108) mmol/L Carbon Dioxide 28 26 (22-29) mmol/L Anion Gap 10 L 9 L (12-20) BUN 25 H 22 H (9-16) mg/dL Creatinine 1.75 H 1.51 H (0.5-1.4) mg/dL Estim Creat Clear Calc 32.2 37.3 Estimated GFR 38 45 Random Glucose 91 D 85 (60-115) mg/dL Calcium 8.5 D 8.2 L (8.4-10.2) mg/dL Magnesium (1.6-2.6) mg/dL Total Bilirubin (0.0-1.0) mg/dL AST (5-37) U/L ALT (0-40) U/L Alkaline Phosphatase (39-117) U/L Total Creatine Kinase (38-174) U/L Troponin I High Sens (<3.5-35.0) ng/L Total Protein (6.5-8.0) g/dL Albumin (3.5-5.0) g/dL Urine Color Urine Appearance Urine pH (5.0-8.0) Ur Specific [place] (1.005-1.025) Urine Protein (NEG-TRACE) MG/DL Urine Glucose (UA) (NEG) MG/DL Urine Ketones (NEG) MG/DL Urine Blood (NEG) Urine Nitrite (NEG) Ur Leukocyte Esterase (NEG) Urine Opiates Screen Not Detected (Not Detect) Urine Fentanyl Screen Not Detected (Not Detect) Ur Barbiturates Screen Not Detected (Not Detect) Ur Phencyclidine Scrn Not Detected (Not Detect) Ur Amphetamines Screen Not Detected (Not Detect) U Benzodiazepines Scrn Not Detected (Not Detect) Urine Cocaine Screen Not Detected (Not Detect) U Marijuana (THC) Screen Not Detected (Not Detect) Ethyl Alcohol mg/dL COVID-19 (COOKIE) (Negative) COVID-19 Clin Com <Edwige Kate NP - Last Filed: 10/30/21 13:17> ECG Data Attestation: I personally reviewed and interpreted this ECG as follows: <Mamadou Angulo MD - Last Filed: 10/30/21 09:11> Interpretation: 2259: Normal sinus rhythm rate of 70, normal AR interval, prolonged QRS interval 134 milliseconds, normal QTC of 455, nonspecific interventricular conduction delay, no ST segment elevation, no ST segment depression, nonspecific T-wave abnormalities, no old EKG for comparison. <Mamadou Angulo MD - Last Filed: 10/30/21 09:11> Discharge Plan Discharge Clinical Impression: Unwitnessed fall, Acute dehydration <Leonela Starkey CNP - Last Filed: 10/29/21 21:21> Patient Disposition: Home, Self-Care <Leonela Starkey CNP - Last Filed: 10/29/21 21:21> Instructions: Dehydration (ED), Fall Prevention (ED) <Leonela Starkey CNP - Last Filed: 10/29/21 21:21> Additional Instructions: Follow-up with your outpatient providers <Leonela Starkey CNP - Last Filed: 10/29/21 21:21> Prescriptions: No Action atorvastatin 40 mg Tablet 40 mg PO BEDTIME acetaminophen 325 mg Tablet 650 mg PO Q6H PRN (Reason: Fever Or Pain) tamsulosin 0.4 mg Capsule 0.4 mg PO DAILY lidocaine 5 % adhesive patch,medicated 1 patch topical DAILY Protocol: Apply to: Apply to: AFFECTED AREA Biktarvy 50-200-25 mg tablet 1 tab PO DAILY Incruse Ellipta 62.5 mcg/actuation blister with device 1 inh inhalation DAILY docusate sodium 100 mg capsule 100 mg PO BID famotidine 20 mg tablet 20 mg PO DAILY citalopram 20 mg tablet 20 mg PO DAILY aspirin 81 mg tablet,delayed release (DR/EC) 81 mg PO DAILY lisinopril 5 mg tablet 5 mg PO DAILY metformin 500 mg tablet 500 mg PO DAILY albuterol sulfate 90 mcg/actuation HFA aerosol inhaler 2 puff inhalation Q4H PRN (Reason: Respiratory Distress) ammonium lactate 12 % cream 1 appl topical BID oxybutynin chloride 10 mg tablet extended release 24hr 10 mg PO DAILY sennosides [senna] 8.6 mg tablet 17.2 mg PO DAILY multivitamin Tablet 1 tab PO QPM <Leonela Starkey CNP - Last Filed: 10/29/21 21:21> Referrals: [facility] [Primary Care Provider] - <Leonela Starkey CNP - Last Filed: 10/29/21 21:21>
--- NOTE | 2021-10-29 22:52 | PC.NURSE ---
Spoke to caregiver, Georgiana. She asked RN to call her with any decisions regarding discharge or admission.
[2021-10-29 23:57] LABS: Alanine Aminotransferase 22 U/L (0-40); Albumin Level 4.3 g/dL (3.5-5.0); Alkaline Phosphatase 59 U/L (39-117); Anion Gap 15 (12-20); Aspartate Amino Transferase 30 U/L (5-37); Bilirubin Total 0.7 mg/dL (0.0-1.0); Blood Urea Nitrogen 32 mg/dL (9-16); Calcium 9.1 mg/dL (8.4-10.2); Carbon Dioxide 24 mmol/L (22-29); Chloride 103 mmol/L (96-108); Creatinine Clr Calc Pharmacy 21.1; Estimated Glomerular Filt Rate 24; Ethanol < 10 mg/dL; Glucose Random 154 mg/dL (60-115); Magnesium 1.6 mg/dL (1.6-2.6); Potassium 4.4 mmol/L (3.3-5.1); Sodium 138 mmol/L (135-145); Total Protein 6.6 g/dL (6.5-8.0)
[2021-10-30 00:01] LABS: Troponin-I High Sensitivity 7.7 ng/L (<3.5-35.0)
[2021-10-30 00:46] VITALS: BP 115/67; PULSE 63; RESP 16; O2SAT 96
[2021-10-30 00:51] LABS: Appearance Urine CLEAR; Color Urine YELLOW; Glucose Urine UA NEG (NEG); Leukocyte Esterase Urine NEG (NEG); Nitrite Urine NEG (NEG); PH 5.5 (5.0-8.0); Urine Blood NEG (NEG); Urine Ketones NEG (NEG); Urine Protein NEG (NEG-TRACE)
[2021-10-30 01:03] LABS: Amphetamine Screen Urine Not Detected (Not Detect); Barbiturates, Urine Not Detected (Not Detect); Benzodiazepines Screen Urine Not Detected (Not Detect); Cannabinoid Screen Urine Not Detected (Not Detect); Cocaine Screen Urine Not Detected (Not Detect); Fentanyl, urine Not Detected (Not Detect); Opiate Screen Urine Not Detected (Not Detect); Phencyclidine Screen Urine Not Detected (Not Detect)
[2021-10-30] MEDS: 0.9 % Sodium Chloride 1,000 ML 1000 ML IV ×2 (02:44)
[2021-10-30 03:59] VITALS: BP 120/58; PULSE 65; RESP 13; O2SAT 94
[2021-10-30 04:29] VITALS: BP 117/51; PULSE 74; RESP 16; TEMP 36.6; O2SAT 94
[2021-10-30 07:04] VITALS: BP 127/78; PULSE 74; RESP 14; TEMP 36.3; O2SAT 95
[2021-10-30 09:13] LABS: Anion Gap 10 (12-20); Blood Urea Nitrogen 25 mg/dL (9-16); Calcium 8.5 mg/dL (8.4-10.2); Carbon Dioxide 28 mmol/L (22-29); Chloride 108 mmol/L (96-108); Creatinine Clr Calc Pharmacy 32.2; Estimated Glomerular Filt Rate 38; Glucose Random 91 mg/dL (60-115); Potassium 4.9 mmol/L (3.3-5.1); Sodium 141 mmol/L (135-145)
[2021-10-30] MEDS: 0.9 % Sodium Chloride 1,000 ML 999 ML IV (09:38)
--- NOTE | 2021-10-30 10:38 | PHA.MEDREC ---
MED REC COMPLETE, BASED ENTIRELY ON PHARMACY CLAIM HISTORY, PATIENT UNABLE TO PROVIDE HISTORY Pharmacy Consult ? Medication Reconciliation Pharmacy has completed the medication reconciliation.
--- NOTE | 2021-10-30 10:55 | MHC.CM.PN ---
T/W SPOKE TO GENERALIST SILVANO ([phone]) SILVANO WANTS TO TAKE PATIENT HOME. SHE FEELS THEY HAVE AMPLE SUPPORT BUT COULD USE MORE SCREW MACHINE TENDER HOURS TO KEEP ON EYE ON PATIENT WHO HAS STARTED WANDERING. SILVANO'S CAR IS BEING WORKED ON. HE WILL NEED TRANSPORT HOME. CASE MANAGEMENT FOLLOWING.
[2021-10-30 12:35] LABS: Anion Gap 9 (12-20); Blood Urea Nitrogen 22 mg/dL (9-16); Calcium 8.2 mg/dL (8.4-10.2); Carbon Dioxide 26 mmol/L (22-29); Chloride 110 mmol/L (96-108); Creatinine Clr Calc Pharmacy 37.3; Estimated Glomerular Filt Rate 45; Glucose Random 85 mg/dL (60-115); Potassium 4.4 mmol/L (3.3-5.1); Sodium 141 mmol/L (135-145)
--- NOTE | 2021-10-30 13:24 | MHC.CM.ED ---
PATIENT TO RETURN HOME VIA [facility] 1600 TRANSPORT TIME REQUESTED. NEWS PRODUCER SILVANO ([phone]) AWARE. HCP TO BE NOTIFIED WELL. Chris MADE AWARE VIA IRI MESSAGE
--- NOTE | 2021-10-30 13:27 | MHC.CM.ED ---
HCP JUDAH [phone] MESSAGE LEFT WITH CALL BACK NUMBER FOR THIS TECHNOLOGY SALES SPECIALIST
[2021-10-30 15:30] VITALS: BP 117/61; PULSE 68; TEMP 36.4; O2SAT 95
--- NOTE | 2021-10-30 18:28 | PC.NURSE ---
awaiting transport home
[2021-10-30 22:35] VITALS: BP 142/83; PULSE 93; RESP 16; O2SAT 93
--- NOTE | 2021-10-31 00:41 | PC.NURSE ---
SPOKE TO ALIYA FROM [facility] FOR ETA ON TRANSPORT THAT WAS WAITING SINCE 1600. ALIYA COULDN'T FIND THE REQUEST FOR TRANSPORT. I GAVE DEMOGRAPHICS AND TRANSPORT SHOULD BE COMING WITHIN THE HOUR
[2021-10-31] MEDS: Atorvastatin Calcium 40 MG TABLET PO (00:49)
[2021-10-31] MEDS: Docusate Sodium 100 MG CAPSULE PO (00:49)
[2021-10-31] MEDS: Multivitamin TABLET 1 TAB PO (00:51)
[2021-10-31 06:00] VITALS: BP 144/61; PULSE 62; RESP 16; TEMP 36.1; O2SAT 97
== END 2021-10-31 08:11 | disposition home or self-care (01) ==
PROVIDERS: Nurse Practitioner Family; Emergency Provider Emergency Medicine Emergency Medical Services
DX: S00.03XA Contusion of scalp, initial encounter (principal); W19.XXXA Unspecified fall, initial encounter; E86.0 Dehydration; D64.9 Anemia, unspecified; D69.6 Thrombocytopenia, unspecified; Z20.822 Contact with and (suspected) exposure to COVID-19; B20 Human immunodeficiency virus [HIV] disease; F03.90 Unspecified dementia, unspecified severity, without behavioral disturbance, psychotic disturbance, mood disturbance, and anxiety; E11.9 Type 2 diabetes mellitus without complications; B19.10 Unspecified viral hepatitis B without hepatic coma; Z79.82 Long term (current) use of aspirin; Z79.02 Long term (current) use of antithrombotics/antiplatelets; Z79.84 Long term (current) use of oral hypoglycemic drugs; Z79.899 Other long term (current) drug therapy; Z85.51 Personal history of malignant neoplasm of bladder; Y93.9 Activity, unspecified; Y92.480 Sidewalk as the place of occurrence of the external cause; Y99.9 Unspecified external cause status
CPT/HCPCS: 36415; 51701; 70450; 71046; 72125; 80048; 80053; 80307; 81003; 82077; 82550; 83735; 84484; 85025; 87635; 93005; 96360; 99285

== ENCOUNTER 2022-01-24 11:24 | Outpatient (REF) | payer OTHER, SELFPAY ==
[2022-01-24 17:11] LABS: Urine Cytology See Pathology rpt
== END 2022-01-24 11:25 | disposition home or self-care (01) ==
LOC: HO.LAB 11:24
PROVIDERS: Visit Provider Urology
DX: C67.9 Malignant neoplasm of bladder, unspecified (principal); N32.81 Overactive bladder
CPT/HCPCS: 52000; 88112; 99212

== ENCOUNTER → 2022-04-04 14:14 | Outpatient (BNVA) | payer OTHER, SELFPAY | PROVIDERS: PCP General Practice; Visit Provider Urology | DX: N32.81 Overactive bladder (principal); N40.1 Benign prostatic hyperplasia with lower urinary tract symptoms; R39.15 Urgency of urination; C67.9 Malignant neoplasm of bladder, unspecified; Z79.899 Other long term (current) drug therapy | CPT/HCPCS: Q3014 ==

== ENCOUNTER → 2022-05-11 11:36 | Outpatient (BNVA) | payer OTHER, SELFPAY | PROVIDERS: PCP General Practice; Visit Provider Psychiatry & Neurology Neurology | DX: F03.90 Unspecified dementia, unspecified severity, without behavioral disturbance, psychotic disturbance, mood disturbance, and anxiety (principal); R47.01 Aphasia | CPT/HCPCS: 99202 ==

== ENCOUNTER 2022-10-09 14:18 | Outpatient (REF) | payer OTHER, SELFPAY ==
[2022-10-09 16:06] LABS: MANUAL DIFF FLAG NO
[2022-10-09 16:29] LABS: Basophils Percent Auto 0.2 % (0-2); Eosinophils Absolute Auto 0.1 X10*3/uL (0.0-0.4); Eosinophils Percent Auto 1.1 % (0-4); Hematocrit 37.8 % (42.0-52.0); Hemoglobin 12.2 g/dl (14.0-18.0); Imm Gran Abs Auto 0.04 X10*3/uL (0.00-0.03); Imm Gran Pct Auto 0.6 % (0.0-0.4); Lymphocytes Absolute Auto 1.1 X10*3/uL (1.2-4.9); Lymphocytes Percent Auto 17.2 % (20-40); Mean Corpuscular HGB Conc 32.3 g/dl (31.0-36.0); Mean Corpuscular Hemoglobin 27.6 pg (27.0-33.0); Mean Corpuscular Volume 85.5 fL (80.0-98.0); Mean Platelet Volume 11.7 fL (9.4-12.4); Monocytes Absolute Auto 0.8 X10*3/uL (0.1-1.2); Monocytes Percent Auto 11.6 % (2-11); Neutrophils Absolute Auto 4.6 x10*3/uL (2.0-8.3); Neutrophils Percent Auto 69.3 % (45-73); Platelet Count 169 X10*3/uL (160-400); Red Blood Count 4.42 X10*6/uL (4.60-5.80); Red Cell Distribution Width 13.5 % (11.0-16.0); White Blood Count 6.6 X10*3/uL (4.8-10.8)
[2022-10-09 16:38] LABS: Alanine Aminotransferase 19 U/L (0-40); Albumin Level 4.3 g/dL (3.5-5.0); Alkaline Phosphatase 56 U/L (39-117); Anion Gap 13 (12-20); Aspartate Amino Transferase 23 U/L (5-37); Bilirubin Total 0.7 mg/dL (0.0-1.0); Blood Urea Nitrogen 24 mg/dL (9-16); Calcium 9.4 mg/dL (8.4-10.2); Carbon Dioxide 25 mmol/L (22-29); Chloride 107 mmol/L (96-108); Estimated Glomerular Filt Rate 50; Glucose Random 96 mg/dL (60-115); Potassium 4.5 mmol/L (3.3-5.1); Sodium 140 mmol/L (135-145); Total Protein 6.8 g/dL (6.5-8.0)
== END 2022-10-09 14:19 | disposition home or self-care (01) ==
LOC: HO.HHCL 14:18
PROVIDERS: Visit Provider General Practice
DX: N18.31 Chronic kidney disease, stage 3a (principal); E11.9 Type 2 diabetes mellitus without complications
CPT/HCPCS: 36415; 80053; 85025

== ENCOUNTER 2023-03-12 11:09 | Emergency (ER) | payer OTHER, SELFPAY ==
[2023-03-12 11:17] VITALS: BP 121/73; BP 124/71; PULSE 65; PULSE 70; RESP 18; TEMP 36.9; O2SAT 93; O2SAT 96; BMI 25.8
--- NOTE | 2023-03-12 13:32 | ED_ITS ---
HPI - General Adult General Chief complaint: Weakness Stated complaint: AMS,USED LIFE ALERT PER EMS Time Seen by Provider: 03/12/23 13:31 History of Present Illness HPI narrative: 77 y/o M patient; PMH dementia, overactive bladder, BPH; presents from home via EMS with report of activated life alert. Patient on arrival in the ED denies complaints. History limited due to patient's dementia. Spoke with patient's VETERINARY MICROBIOLOGIST Georgiana - reports patient lives along but she checks on him every day and does overnights as well. Today she reports he accidentally laid down pressing the life alert button. 911 contacted Georgiana but she could not get to the house to sign refusal for the patient as she was getting her car fixed. She states she is currently on the way to the hospital to be with him now that her car is working. She otherwise states he has recently been in a normal state of health. He was COVID positive one week ago, but tested negative on home test yesterday. His only symptom was a dry cough per Georgiana. Related Data Home Medications Medication Instructions Recorded Confirmed aspirin 81 mg tablet,delayed 81 mg PO DAILY 10/20/20 05/11/22 release bictegravir 50 mg-emtricitabine 1 tab PO DAILY 10/20/20 05/11/22 200 mg-tenofovir alafenam 25 mg tablet (Biktarvy) citalopram 20 mg tablet 20 mg PO DAILY 10/20/20 05/11/22 docusate sodium 100 mg capsule 100 mg PO BID 10/20/20 05/11/22 famotidine 20 mg tablet 20 mg PO DAILY 10/20/20 05/11/22 umeclidinium 62.5 mcg/actuation 1 inh inhalation DAILY 10/20/20 05/11/22 blister powder for inhalation (Incruse Ellipta) albuterol sulfate 90 mcg/actuation 2 puff inhalation Q4H PRN 11/10/20 05/11/22 aerosol inhaler Respiratory Distress ammonium lactate 12 % topical cream 1 appl topical BID 11/10/20 01/24/22 blood sugar diagnostic (FreeStyle #10 ea 11/10/20 05/11/22 Lite Strips) lancets 28 gauge (FreeStyle #100 ea 11/10/20 05/11/22 Lancets) lancets 33 gauge (TRUEplus Lancets) #100 ea 11/10/20 05/11/22 lisinopril 5 mg tablet 5 mg PO DAILY 11/10/20 05/11/22 metformin 500 mg tablet 500 mg PO DAILY 11/10/20 05/11/22 multivitamin 1 tab PO QPM 11/10/20 05/11/22 sennosides 8.6 mg tablet (senna) 17.2 mg PO DAILY 11/10/20 05/11/22 acetaminophen 325 mg tablet 650 mg PO Q6H PRN Fever Or Pain 10/30/21 05/11/22 atorvastatin 40 mg tablet 40 mg PO BEDTIME 10/30/21 05/11/22 lidocaine 5 % topical patch 1 patch topical DAILY 10/30/21 05/11/22 lancets 31 gauge (Ultra Thin #100 ea 01/23/22 05/11/22 Lancets) fluticasone propionate 50 spray intranasal 04/04/22 05/11/22 mcg/actuation nasal spray,suspension multivitamin with folic acid 400 1 tab PO DAILY 04/04/22 05/11/22 mcg tablet (Tab-A-Mariaelena) oxybutynin chloride 10 mg 10 mg PO DAILY 04/04/22 05/11/22 tablet,extended release 24 hr tamsulosin 0.4 mg capsule 0.4 mg PO DAILY 04/04/22 05/11/22 Previous Rx's Medication Instructions Recorded tolterodine 4 mg capsule,extended 4 mg PO DAILY 30 days #30 caps 08/22/22 release 24 hr donepezil 10 mg tablet (Aricept) 10 mg PO DAILY #30 tabs 10/11/22 Allergies Allergy/AdvReac Type Severity Reaction Status Date / Time No Known Allergies Allergy Verified 05/11/22 11:45 Review of Systems 2 Review of Systems: Yes Unobtainable due to mental status (dementia) Neurologic: Denies Sensory deficit (Neuro) [facility] Past Medical History Source: old records reviewed Medical History Osteoarthritis of right knee BPH (benign prostatic hyperplasia) Bladder cancer Diabetes mellitus HIV disease Hepatitis B COPD (chronic obstructive pulmonary disease) Confusion Social History Social History Alcohol intake: never Patient Tobacco Use Status: Never used Tobacco Advance Directives: Yes Advance Directives on File: Yes Advance Directives Date on File: 10/31/21 Current occupational status: retired Physical Exam ED Vital Signs: Vital Signs - 24 hr 03/12/23 11:17 03/12/23 14:13 Temperature 98.5 F 98.6 F Pulse Rate 65 58 Respiratory Rate 18 12 Blood Pressure 124/71 126/71 Pulse Oximetry 93 95 Oxygen Delivery Method Room Air Room Air BMI result Body Mass Index 25.8 Patient is afebrile and hemodynamically stable Const General: cooperative, healthy appearing and no acute distress Orientation/consciousness: oriented to person, No oriented to place and No oriented to time HENMT Head: Yes normal to inspection and Yes atraumatic Eyes General: appearance normal, both eyes and all related structures Pupils: Equal, round and reactive pupils present EOM: EOMs intact bilaterally Neck Neck: Yes full ROM, Yes supple and No tender Chest Chest palpation & inspection: normal inspection of the chest and normal palpation of entire chest wall Resp Effort & Inspection: normal respiratory effort, able to speak in complete sentences, no cough and no respiratory distress Auscultation: clear to auscultation bilaterally Cardio Rate: regular rate Rhythm: regular rhythm Peripheral pulses: Peripheral pulses 2+ throughout GI Inspection: Yes normal to inspection Palpation (GI): Soft to palpation, not firm, nontender and no guarding Neuro General: oriented to person, No oriented to place, No oriented to time and moves all extremities Cranial nerves: Yes CN's II-XII intact bilaterally and Yes Equal, round and reactive pupils present Gait exam (Neuro): Normal gait present Motor exam (neuro): 5/5 motor strength present throughout Sensory Exam: No Sensory deficit (Neuro) Course Course Course Narrative: Patient is afebrile and hemodynamically stable. Ordered screening studies with EKG, CBC, and BMP while waiting to hear from VETERINARY MICROBIOLOGIST. Patient remains without complaints. Reevaluation(s) Reevaluation #1: EKG: NSR 58BPM with T wave inversions in II, III, avF, without ST-T elevations. CBC and BMP reassuring. Patient's VETERINARY MICROBIOLOGIST at bedside. Exam and history per VETERINARY MICROBIOLOGIST reassuring. Basic labs without acute abnormalities. Patient and VETERINARY MICROBIOLOGIST agreeable to home at this time. VETERINARY MICROBIOLOGIST will transport to home. Plan: Discharge to home with PCP follow up Return precautions given Time: 14:32 Medical Decision Making Lab Data 03/12/23 14:07 12/18/23 14:07 Labs: Lab Results 03/12/23 Range/Units 14:07 WBC 6.6 (4.8-10.8) X10*3/uL RBC 4.76 (4.60-5.80) X10*6/uL Hgb 13.3 L (14.0-18.0) g/dl Hct 40.1 L (42.0-52.0) % MCV 84.2 (80.0-98.0) fL MCH 27.9 (27.0-33.0) pg MCHC 33.2 (31.0-36.0) g/dl RDW 12.7 (11.0-16.0) % Plt Count 180 (160-400) X10*3/uL MPV 10.6 (9.4-12.4) fL Immature Gran % (Auto) 0.6 H (0.0-0.4) % Neut % (Auto) 76.2 H (45-73) % Lymph % (Auto) 12.5 L (20-40) % [place] % (Auto) 9.6 (2-11) % Eos % (Auto) 1.1 (0-4) % Baso % (Auto) 0.0 (0-2) % Lymph # (Auto) 0.8 L (1.2-4.9) X10*3/uL [place] # (Auto) 0.6 (0.1-1.2) X10*3/uL Eos # (Auto) 0.1 (0.0-0.4) X10*3/uL Baso # (Auto) 0.0 (0.0-0.2) X10*3/uL Abs Immat Gran (auto) 0.04 H (0.00-0.03) X10*3/uL Absolute Neuts (auto) 5.0 (2.0-8.3) x10*3/uL Absolute Nucleated RBC 0.000 (0.0-0.012) X10*3/uL Nucleated RBC % (auto) 0.0 (0.0-0.2) /100WBC Sodium 143 (135-145) mmol/L Potassium 4.3 (3.3-5.1) mmol/L Chloride 107 (96-108) mmol/L Carbon Dioxide 27 (22-29) mmol/L Anion Gap 13 (12-20) BUN 17 H (9-16) mg/dL Creatinine 1.09 (0.5-1.4) mg/dL Estim Creat Clear Calc 48.2 Estimated GFR > 60 Random Glucose 105 (60-115) mg/dL Calcium 9.2 (8.4-10.2) mg/dL Discharge Plan Discharge Clinical Impression: Dementia Patient Disposition: Home, Self-Care Instructions: Dementia (ED) Additional Instructions: As we discussed, you were seen today when your life alert went off. You appeared well on exam, with reassuring vitals, and a reassuring EKG (study of your heart). Please follow up with your PCP within 1 week to discuss your recent ED visit. Return to the ED for chest pain, difficulty breathing, or passing out. Prescriptions: No Action tolterodine 4 mg capsule,extended release 24hr 4 mg PO DAILY 30 Days Qty: 30 1RF donepezil [Aricept] 10 mg tablet 10 mg PO DAILY Qty: 30 6RF atorvastatin 40 mg Tablet 40 mg PO BEDTIME acetaminophen 325 mg Tablet 650 mg PO Q6H PRN (Reason: Fever Or Pain) lidocaine 5 % adhesive patch,medicated 1 patch topical DAILY Protocol: Apply to: Apply to: AFFECTED AREA Biktarvy 50-200-25 mg tablet 1 tab PO DAILY Incruse Ellipta 62.5 mcg/actuation blister with device 1 inh inhalation DAILY docusate sodium 100 mg capsule 100 mg PO BID famotidine 20 mg tablet 20 mg PO DAILY citalopram 20 mg tablet 20 mg PO DAILY aspirin 81 mg tablet,delayed release (DR/EC) 81 mg PO DAILY lisinopril 5 mg tablet 5 mg PO DAILY metformin 500 mg tablet 500 mg PO DAILY albuterol sulfate 90 mcg/actuation HFA aerosol inhaler 2 puff inhalation Q4H PRN (Reason: Respiratory Distress) ammonium lactate 12 % cream 1 appl topical BID sennosides [senna] 8.6 mg tablet 17.2 mg PO DAILY (DME) lancets [FreeStyle Lancets] 28 gauge misc See Rx Instructions topical DAILY Qty: 100 Rx Instructions: As directed (DME) FreeStyle Lite Strips Strip See Rx Instructions Not Applicable DAILY Qty: 10 Rx Instructions: As directed multivitamin Tablet 1 tab PO QPM (DME) lancets [TRUEplus Lancets] 33 gauge misc See Rx Instructions Not Applicable DAILY Qty: 100 Rx Instructions: As directed (DME) Ultra Thin Lancets 31 gauge misc See Rx Instructions .ROUTE .MEDSUPPLY Qty: 100 Rx Instructions: As directed multivitamin with folic acid [Tab-A-Mariaelena] 400 mcg tablet 1 tab PO DAILY fluticasone propionate 50 mcg/actuation spray,suspension intranasal tamsulosin 0.4 mg capsule 0.4 mg PO DAILY oxybutynin chloride 10 mg tablet extended release 24hr 10 mg PO DAILY
--- NOTE | 2023-03-12 13:33 | ECG_ITS ---
Test Reason : WEAKNESS Blood Pressure : / mmHG Vent. Rate : 058 BPM Atrial Rate : 058 BPM P-R Int : 160 ms QRS Dur : 130 ms QT Int : 490 ms P-R-T Axes : 056 -68 -78 degrees QTc Int : 481 ms Sinus bradycardia Left axis deviation Non-specific intra-ventricular conduction block Minimal voltage criteria for LVH, may be normal variant ( Ulysses product ) T wave abnormality, consider inferior ischemia Abnormal ECG When compared with ECG of 29-OCT-2021 22:59, T wave inversion now evident in Inferior leads Nonspecific T wave abnormality now evident in Anterior leads Referred By: Amy Roberts Electronically Signed By:COURTNEY LUGO MD
[2023-03-12 14:10] LABS: MANUAL DIFF FLAG NO
[2023-03-12 14:13] VITALS: BP 126/71; PULSE 58; RESP 12; TEMP 37; O2SAT 95
[2023-03-12 14:15] LABS: Eosinophils Absolute Auto 0.1 X10*3/uL (0.0-0.4); Eosinophils Percent Auto 1.1 % (0-4); Hematocrit 40.1 % (42.0-52.0); Hemoglobin 13.3 g/dl (14.0-18.0); Imm Gran Abs Auto 0.04 X10*3/uL (0.00-0.03); Imm Gran Pct Auto 0.6 % (0.0-0.4); Lymphocytes Absolute Auto 0.8 X10*3/uL (1.2-4.9); Lymphocytes Percent Auto 12.5 % (20-40); Mean Corpuscular HGB Conc 33.2 g/dl (31.0-36.0); Mean Corpuscular Hemoglobin 27.9 pg (27.0-33.0); Mean Corpuscular Volume 84.2 fL (80.0-98.0); Mean Platelet Volume 10.6 fL (9.4-12.4); Monocytes Absolute Auto 0.6 X10*3/uL (0.1-1.2); Monocytes Percent Auto 9.6 % (2-11); Neutrophils Percent Auto 76.2 % (45-73); Platelet Count 180 X10*3/uL (160-400); Red Blood Count 4.76 X10*6/uL (4.60-5.80); Red Cell Distribution Width 12.7 % (11.0-16.0); White Blood Count 6.6 X10*3/uL (4.8-10.8)
[2023-03-12 14:27] LABS: Anion Gap 13 (12-20); Blood Urea Nitrogen 17 mg/dL (9-16); Calcium 9.2 mg/dL (8.4-10.2); Carbon Dioxide 27 mmol/L (22-29); Chloride 107 mmol/L (96-108); Creatinine Clr Calc Pharmacy 48.2; Estimated Glomerular Filt Rate > 60; Glucose Random 105 mg/dL (60-115); Potassium 4.3 mmol/L (3.3-5.1); Sodium 143 mmol/L (135-145)
== END 2023-03-12 14:43 | disposition home or self-care (01) ==
PROVIDERS: Emergency Provider Emergency Medicine; PCP General Practice
DX: F03.90 Unspecified dementia, unspecified severity, without behavioral disturbance, psychotic disturbance, mood disturbance, and anxiety (principal); N32.81 Overactive bladder; R00.1 Bradycardia, unspecified; Z79.899 Other long term (current) drug therapy
CPT/HCPCS: 36415; 80048; 85025; 93005; 99283; 99284

== ENCOUNTER → 2023-03-12 13:33 | Outpatient (BNV) | payer OTHER, SELFPAY | PROVIDERS: Emergency Provider Emergency Medicine; PCP General Practice; Visit Provider Internal Medicine Cardiovascular Disease | DX: R00.1 Bradycardia, unspecified (principal); R94.31 Abnormal electrocardiogram [ECG] [EKG] | CPT/HCPCS: 93010 ==

== ENCOUNTER 2023-07-04 16:57 | Outpatient (REF) | payer OTHER, SELFPAY ==
[2023-07-04 18:46] LABS: Alanine Aminotransferase 21 U/L (0-40); Albumin Level 4.4 g/dL (3.5-5.0); Alkaline Phosphatase 71 U/L (39-117); Anion Gap 15 (12-20); Aspartate Amino Transferase 32 U/L (5-37); Bilirubin Total 0.4 mg/dL (0.0-1.0); Blood Urea Nitrogen 22 mg/dL (9-16); Calcium 9.6 mg/dL (8.4-10.2); Carbon Dioxide 24 mmol/L (22-29); Chloride 109 mmol/L (96-108); Cholesterol 104 mg/dL (<200); Estimated Glomerular Filt Rate > 60; HDL Cholesterol 35 mg/dL (>40); LDL Cholesterol Calculated 43 mg/dL (<100); Potassium 4.7 mmol/L (3.3-5.1); Sodium 143 mmol/L (135-145); Total Protein 7.3 g/dL (6.5-8.0); Triglycerides 130 mg/dL (<150)
[2023-07-04 19:37] LABS: Glucose Random 121 mg/dL (60-115)
[2023-07-04 20:35] LABS: Reflex LDLD? No
== END 2023-07-04 16:58 | disposition home or self-care (01) ==
LOC: HO.HHCL 16:57
PROVIDERS: Visit Provider Internal Medicine
DX: B20 Human immunodeficiency virus [HIV] disease (principal); Z13.220 Encounter for screening for lipoid disorders
CPT/HCPCS: 36415; 80053; 80061

== ENCOUNTER 2023-08-16 16:05 | Outpatient (REF) | payer OTHER, SELFPAY ==
[2023-08-16 16:53] LABS: MANUAL DIFF FLAG NO
[2023-08-16 18:08] LABS: Basophils Percent Auto 0.1 % (0-2); Eosinophils Absolute Auto 0.1 X10*3/uL (0.0-0.4); Eosinophils Percent Auto 1.2 % (0-4); Hematocrit 39.5 % (42.0-52.0); Hemoglobin 12.8 g/dl (14.0-18.0); Imm Gran Abs Auto 0.03 X10*3/uL (0.00-0.03); Imm Gran Pct Auto 0.4 % (0.0-0.4); Lymphocytes Percent Auto 14.4 % (20-40); Mean Corpuscular HGB Conc 32.4 g/dl (31.0-36.0); Mean Corpuscular Hemoglobin 28.3 pg (27.0-33.0); Mean Corpuscular Volume 87.2 fL (80.0-98.0); Mean Platelet Volume 11.8 fL (9.4-12.4); Monocytes Absolute Auto 0.8 X10*3/uL (0.1-1.2); Monocytes Percent Auto 12.5 % (2-11); Neutrophils Absolute Auto 4.8 x10*3/uL (2.0-8.3); Neutrophils Percent Auto 71.4 % (45-73); Platelet Count 175 X10*3/uL (160-400); Red Blood Count 4.53 X10*6/uL (4.60-5.80); Red Cell Distribution Width 13.2 % (11.0-16.0); White Blood Count 6.7 X10*3/uL (4.8-10.8)
[2023-08-16 18:25] LABS: Alanine Aminotransferase 19 U/L (0-40); Albumin Level 4.4 g/dL (3.5-5.0); Alkaline Phosphatase 68 U/L (39-117); Anion Gap 14 (12-20); Aspartate Amino Transferase 26 U/L (5-37); Bilirubin Total 0.6 mg/dL (0.0-1.0); Blood Urea Nitrogen 22 mg/dL (9-16); Calcium 9.9 mg/dL (8.4-10.2); Carbon Dioxide 27 mmol/L (22-29); Chloride 107 mmol/L (96-108); Estimated Glomerular Filt Rate 46; Glucose Random 142 mg/dL (60-115); Sodium 143 mmol/L (135-145); Total Protein 7.1 g/dL (6.5-8.0)
[2023-08-17 10:53] LABS: Absolute CD3 Count 653 cells/uL (840-3060); Absolute CD4 Count 255 cells/uL (490-1740); Absolute CD8 Count 400 cells/uL (180-1170); Absolute Lymphocytes 972 cells/uL (850-3900); CD4 CD8 Ratio 0.64 (0.86-5.00); Percent CD3 Cells 67 % (57-85); Percent CD4 Cells 26 % (30-61); Percent CD8 Cells 41 % (12-42)
[2023-08-18 15:14] LABS: HIV RNA PCR Qn Copies NOT DETECTED copies/mL (NOT DETECTED); HIV RNA PCR Qn Log Copies NOT DETECTED (NOT DETECTED)
== END 2023-08-16 16:06 | disposition home or self-care (01) ==
LOC: HO.HHCL 16:05
PROVIDERS: Visit Provider Internal Medicine
DX: B20 Human immunodeficiency virus [HIV] disease (principal)
CPT/HCPCS: 36415; 80053; 85025; 86359; 86360; 87536

== ENCOUNTER 2023-10-29 10:20 | Outpatient (REF) | payer OTHER, SELFPAY | END 2023-10-29 10:21 | disposition home or self-care (01) | LOC: HO.HHCL 10:20 | PROVIDERS: Visit Provider General Practice | DX: Z13.89 Encounter for screening for other disorder (principal) ==

== ENCOUNTER 2023-12-11 15:44 | Emergency (ER) | payer OTHER, SELFPAY ==
--- NOTE | ~2023-12-11 | CT_ITS ---
EXAMINATION: CT HEAD WITHOUT CONTRAST CLINICAL INFORMATION: Worsening altered mental status. Dementia. History of HIV. COMPARISON: CT head from 06/22/2020. TECHNIQUE: Contiguous axial imaging was performed from the skull base to vertex without intravenous administration of contrast. This CT examination was performed using dose optimization techniques as appropriate, variously including the following: *Automated exposure control. *Adjustment of mA and/or kV according to patient size (this includes techniques or standardized protocols for targeted exams where dose is matched to indication/reason for exam; i.e. extremities or head). *Use of iterative reconstruction technique. DLP: 712 mGy-cm FINDINGS: There is no evidence of acute intracranial hemorrhage or edematous territorial infarction. Chronic lacunar infarct of the left thalamus. No new loss of contreras-white matter differentiation. Confluent hypoattenuation in the periventricular and deep white matter. Proportional prominence of the ventricles and sulcal spaces without evidence of obstructive hydrocephalus. No abnormal mass effect or midline shift. No extra-axial fluid collections. No acute soft tissue or osseous abnormalities. Chronic definite angulation of the nasal bones. Mild mucosal thickening of the paranasal sinuses. Moderate rightward nasal septal lesion anteriorly and leftward nasal septal deviation posteriorly. The mastoid air cells and middle ear cavities are clear. CT/CT head/brain wo IV con IMPRESSION: 1. No evidence of acute intracranial hemorrhage or edematous territorial infarction. 2. Extensive underlying microangiopathy and generalized cerebral volume loss. Chronic lacunar infarct of the left thalamus. 3. Moderate rightward nasal septal lesion anteriorly and leftward nasal septal deviation posteriorly. Electronically signed by: Andrew Brown DO 12/11/2023 06:33 PM EDT
[2023-12-11 15:53] VITALS: BP 140/78; BP 146/77; PULSE 78; PULSE 82; RESP 16; TEMP 37; O2SAT 95; O2SAT 97; BMI 22.6
--- NOTE | 2023-12-11 16:31 | ED_ITS ---
HPI - Altered Mental Status General Chief Complaint: Altered Mental Status Stated Complaint: FOUND WANDERING,CONFUSED PER EMS Time Seen by Provider: 12/11/23 16:16 Source: EMS Mode of arrival: EMS Limitations: altered mental status History of Present Illness ED Provider: Dr. Susana Carter HPI narrative: Patient comes to the emergency room via ambulance. Patient was found wandering around the streets close to a restaurant looking confused. Seems that bystanders no him, seems that his apartment was approximately 200 ft from his apartment complex. Patient is awake, alert, has no complaints. Patient has no idea how he got here or what happened. Patient is known to have Alzheimer's dementia. Related Data Home Medications ?Medication ?Instructions ?Recorded ?Confirmed aspirin 81 mg tablet,delayed 81 mg PO DAILY 10/20/20 05/11/22 release bictegravir 50 mg-emtricitabine 1 tab PO DAILY 10/20/20 05/11/22 200 mg-tenofovir alafenam 25 mg tablet (Biktarvy) citalopram 20 mg tablet 20 mg PO DAILY 10/20/20 05/11/22 docusate sodium 100 mg capsule 100 mg PO BID 10/20/20 05/11/22 famotidine 20 mg tablet 20 mg PO DAILY 10/20/20 05/11/22 umeclidinium 62.5 mcg/actuation 1 inh inhalation DAILY 10/20/20 05/11/22 blister powder for inhalation (Incruse Ellipta) albuterol sulfate 90 mcg/actuation 2 puff inhalation Q4H PRN 11/10/20 05/11/22 aerosol inhaler Respiratory Distress ammonium lactate 12 % topical cream 1 appl topical BID 11/10/20 01/24/22 blood sugar diagnostic (FreeStyle #10 ea 11/10/20 05/11/22 Lite Strips) lancets 28 gauge (FreeStyle #100 ea 11/10/20 05/11/22 Lancets) lancets 33 gauge (TRUEplus Lancets) #100 ea 11/10/20 05/11/22 lisinopril 5 mg tablet 5 mg PO DAILY 11/10/20 05/11/22 metformin 500 mg tablet 500 mg PO DAILY 11/10/20 05/11/22 multivitamin 1 tab PO QPM 11/10/20 05/11/22 sennosides 8.6 mg tablet (senna) 17.2 mg PO DAILY 11/10/20 05/11/22 acetaminophen 325 mg tablet 650 mg PO Q6H PRN Fever Or Pain 10/30/21 05/11/22 atorvastatin 40 mg tablet 40 mg PO BEDTIME 10/30/21 05/11/22 lidocaine 5 % topical patch 1 patch topical DAILY 10/30/21 05/11/22 lancets 31 gauge (Ultra Thin #100 ea 01/23/22 05/11/22 Lancets) fluticasone propionate 50 spray intranasal 04/04/22 05/11/22 mcg/actuation nasal spray,suspension multivitamin with folic acid 400 1 tab PO DAILY 04/04/22 05/11/22 mcg tablet (Tab-A-Mariaelena) oxybutynin chloride 10 mg 10 mg PO DAILY 04/04/22 05/11/22 tablet,extended release 24 hr tamsulosin 0.4 mg capsule 0.4 mg PO DAILY 04/04/22 05/11/22 Previous Rx's ?Medication ?Instructions ?Recorded tolterodine 4 mg capsule,extended 4 mg PO DAILY 30 days #30 caps 08/22/22 release 24 hr donepezil 10 mg tablet (Aricept) 10 mg PO DAILY #30 tabs 05/08/23 Allergies Allergy/AdvReac Type Severity Reaction Status Date / Time No Known Allergies Allergy Verified 12/11/23 15:54 Review of Systems 2 Review of Systems: Yes Unobtainable due to mental condition PMFSH Past Medical History Medical History Osteoarthritis of right knee BPH (benign prostatic hyperplasia) Bladder cancer Diabetes mellitus HIV disease Hepatitis B COPD (chronic obstructive pulmonary disease) Confusion Social History Social History Alcohol intake: never Patient Tobacco Use Status: Never used Tobacco Advance Directives: Yes Advance Directives on File: Yes Advance Directives Date on File: 10/31/21 Current occupational status: retired Physical Exam ED Vital Signs: Vital Signs - 24 hr 12/11/23 15:53 12/11/23 19:41 Temperature 98.6 F 97.3 F Pulse Rate 78 68 Respiratory Rate 16 16 Blood Pressure 146/77 H 140/89 H Pulse Oximetry 95 95 Oxygen Delivery Method Room Air Room Air BMI result Body Mass Index 22.6 Const Other: Appearance: Alert. Oriented X1 No acute distress. patient is confused, only alert to name. Patient seems unharmed, no obvious signs of falls or trauma Eyes: Pupils equal, round and reactive to light. ENT: Pharynx normal. Neck: Normal inspection. Neck supple. No lymph nodes noted. No crepitus CVS: Normal heart rate and rhythm. Pulses normal. Normal S1 and S2 Respiratory: No respiratory distress. Breath sounds normal. No Wheezing. No rales Abdomen: Soft and nontender. No rigidity. No distention. Skin: Skin warm and dry. Normal skin color. Normal skin turgor. Extremities: No lower extremity edema. No Lacerations. No Rash Neuro: Oriented X 1. No motor deficit. No sensory deficit. Moving all extremities. No slurred speech. CN 2 through 12 grossly intact Psych: calm, cooperative, normal affect Course Course Course Narrative: - patient's nurse tried calling patient's primary contact Georgiana MArie (friend) and healthcare proxy Kong Martinez. no one picked up the phone. - All of patient's labs pending - eventually, the patient's nurse was able to talk to Kong Martinez. the phone number and the name of the person was correct. However, Kong states that he has never heard of [facility] before. Medications Administered Discontinued Medications Generic Name Dose Route Start Last Admin Trade Name Freq PRN Reason Stop Dose Admin Sodium Chloride 1,000 mls @ 999 mls/hr 12/11/23 17:58 12/11/23 18:26 Ns IVCONT 12/11/23 18:58 999 mls/hr .Q1H1M ONE Administration Medical Decision Making Medical Decision Making [facility] Narrative: My interpretation of labs, normal hematology, chemistry shows a creatinine of 1.48, slightly elevated, patient receiving IV fluids. Patient's get it was a bit bumped back in July of 2023, may be chronic for the patient. alcohol level negative - my interpretation of CT scan of the head, no obvious intracranial bleed - case management consult pending - physician observation started at 19:00 - Urinalysis and toxicology negative - case management was able to get in touch with the patient's healthcare proxy, it is actually his friend who is listed as primary contact. She explain to us that patient accidentally locked himself out. This has not happened for approximately 2 years. Overall, seems that the warehouse laborer takes good care of him. Nurse and machine adjuster leader case trim agree that it would be safe to discharge the patient home with the health warehouse laborer Differential Diagnosis Differential Diagnoses: The differential diagnosis associated with the presentation includes ( dementia, UTI, polysubstance abuse, ETOH abuse) Admission/Observation Consideration of admission/observation: Escalation of care including admission/observation considered ( patient is under physician observation. We can not discharge the patient with his current mental state. Patient may need placement,) Lab Data MDM Lab Attestation statement: I reviewed the patient's lab results. 12/11/23 16:37 12/11/23 16:37 Labs: Lab Results 12/11/23 12/11/23 Range/Units 16:37 19:48 WBC 5.8 (4.8-10.8) X10*3/uL RBC 4.03 L (4.60-5.80) X10*6/uL Hgb 11.6 L (14.0-18.0) g/dl Hct 34.4 L (42.0-52.0) % MCV 85.4 (80.0-98.0) fL MCH 28.8 (27.0-33.0) pg MCHC 33.7 (31.0-36.0) g/dl RDW 13.2 (11.0-16.0) % Plt Count 156 L (160-400) X10*3/uL MPV 11.0 (9.4-12.4) fL Immature Gran % (Auto) 0.3 (0.0-0.4) % Neut % (Auto) 68.8 (45-73) % Lymph % (Auto) 16.3 L (20-40) % [facility] % (Auto) 13.2 H (2-11) % Eos % (Auto) 1.2 (0-4) % Baso % (Auto) 0.2 (0-2) % Lymph # (Auto) 1.0 L (1.2-4.9) X10*3/uL [facility] [place] # (Auto) 0.8 (0.1-1.2) X10*3/uL Eos # (Auto) 0.1 (0.0-0.4) X10*3/uL Baso # (Auto) 0.0 (0.0-0.2) X10*3/uL Abs Immat Gran (auto) 0.02 (0.00-0.03) X10*3/uL Absolute Neuts (auto) 4.0 (2.0-8.3) x10*3/uL Absolute Nucleated RBC 0.000 (0.0-0.012) X10*3/uL Nucleated RBC % (auto) 0.0 (0.0-0.2) /100WBC Sodium 140 (135-145) mmol/L Potassium 4.2 (3.3-5.1) mmol/L Chloride 108 (96-108) mmol/L Carbon Dioxide 23 (22-29) mmol/L Anion Gap 13 (12-20) BUN 24 H (9-16) mg/dL Creatinine 1.48 H (0.5-1.4) mg/dL Estim Creat Clear Calc 37.5 Estimated GFR 46 Random Glucose 100 (60-115) mg/dL Calcium 9.1 D (8.4-10.2) mg/dL Magnesium 1.8 (1.6-2.6) mg/dL Total Bilirubin 0.3 (0.0-1.0) mg/dL Direct Bilirubin 0.1 (0.0-0.5) mg/dL AST 21 (5-37) U/L ALT 16 (0-40) U/L Alkaline Phosphatase 60 (39-117) U/L Total Protein 6.7 (6.5-8.0) g/dL Albumin 4.2 (3.5-5.0) g/dL Urine Color Yellow Urine Appearance Clear Urine pH 6.5 (5.0-9.0) Ur Specific [place] 1.015 (1.005-1.025) Urine Protein Negative (Neg-Trace) mg/dL Urine Glucose (UA) Negative (Negative) mg/dL Urine Ketones Negative (Negative) mg/dL Urine Blood Negative (Negative) Urine Nitrite Negative (Negative) Ur Leukocyte Esterase Negative (Negative) Urine Opiates Screen Not Detected (Not Detect) Ur Buprenorphine Scrn Not Detected (Not Detect) ng/mL Ur Oxycodone Screen Not Detected (Not Detect) ng/mL Urine Methadone Screen Not Detected (Not Detect) ng/mL Urine Fentanyl Screen Not Detected (Not Detect) Ur Barbiturates Screen Not Detected (Not Detect) Ur Phencyclidine Scrn Not Detected (Not Detect) Ur Amphetamines Screen Not Detected (Not Detect) U Benzodiazepines Scrn Not Detected (Not Detect) Urine Cocaine Screen Not Detected (Not Detect) U Marijuana (THC) Screen Not Detected (Not Detect) Ethyl Alcohol < 10 mg/dL Independent Interpretation I performed an independent interpretation of an: CT Scan Radiology Impression Discussion of test interpretation with radiology: I have reviewed the radiologist's reading. Radiologist Impression: FINDINGS: There is no evidence of acute intracranial hemorrhage or edematous territorial infarction. Chronic lacunar infarct of the left thalamus. No new loss of contreras-white matter differentiation. Confluent hypoattenuation in the periventricular and deep white matter. Proportional prominence of the ventricles and sulcal spaces without evidence of obstructive hydrocephalus. No abnormal mass effect or midline shift. No extra-axial fluid collections. No acute soft tissue or osseous abnormalities. Chronic definite angulation of the nasal bones. Mild mucosal thickening of the paranasal sinuses. Moderate rightward nasal septal lesion anteriorly and leftward nasal septal deviation posteriorly. The mastoid air cells and middle ear cavities are clear. CT/CT head/brain wo IV con IMPRESSION: 1. No evidence of acute intracranial hemorrhage or edematous territorial infarction. 2. Extensive underlying microangiopathy and generalized cerebral volume loss. Chronic lacunar infarct of the left thalamus. 3. Moderate rightward nasal septal lesion anteriorly and leftward nasal septal deviation posteriorly. Discharge Plan Discharge Clinical Impression: Altered mental status, Dementia Patient Disposition: Home, Self-Care Instructions: Dementia (ED) Additional Instructions: Please follow-up with your primary care physician tomorrow. If you have any worsening or new symptoms, please return to the emergency room or call 911 Prescriptions: No Action tolterodine 4 mg capsule,extended release 24hr 4 mg PO DAILY 30 Days Qty: 30 1RF donepezil [Aricept] 10 mg tablet 10 mg PO DAILY Qty: 30 6RF atorvastatin 40 mg Tablet 40 mg PO BEDTIME acetaminophen 325 mg Tablet 650 mg PO Q6H PRN (Reason: Fever Or Pain) lidocaine 5 % adhesive patch,medicated 1 patch topical DAILY Protocol: Apply to: Apply to: AFFECTED AREA Biktarvy 50-200-25 mg tablet 1 tab PO DAILY Incruse Ellipta 62.5 mcg/actuation blister with device 1 inh inhalation DAILY docusate sodium 100 mg capsule 100 mg PO BID famotidine 20 mg tablet 20 mg PO DAILY citalopram 20 mg tablet 20 mg PO DAILY aspirin 81 mg tablet,delayed release (DR/EC) 81 mg PO DAILY lisinopril 5 mg tablet 5 mg PO DAILY metformin 500 mg tablet 500 mg PO DAILY albuterol sulfate 90 mcg/actuation HFA aerosol inhaler 2 puff inhalation Q4H PRN (Reason: Respiratory Distress) ammonium lactate 12 % cream 1 appl topical BID sennosides [senna] 8.6 mg tablet 17.2 mg PO DAILY (DME) lancets [FreeStyle Lancets] 28 gauge misc See Rx Instructions topical DAILY Qty: 100 Rx Instructions: As directed (DME) FreeStyle Lite Strips Strip See Rx Instructions Not Applicable DAILY Qty: 10 Rx Instructions: As directed multivitamin Tablet 1 tab PO QPM (DME) lancets [TRUEplus Lancets] 33 gauge misc See Rx Instructions Not Applicable DAILY Qty: 100 Rx Instructions: As directed (DME) Ultra Thin Lancets 31 gauge misc See Rx Instructions .ROUTE .MEDSUPPLY Qty: 100 Rx Instructions: As directed multivitamin with folic acid [Tab-A-Mariaelena] 400 mcg tablet 1 tab PO DAILY fluticasone propionate 50 mcg/actuation spray,suspension intranasal tamsulosin 0.4 mg capsule 0.4 mg PO DAILY oxybutynin chloride 10 mg tablet extended release 24hr 10 mg PO DAILY Print Language: [place]
[2023-12-11 16:41] LABS: MANUAL DIFF FLAG NO
[2023-12-11 16:54] LABS: Basophils Percent Auto 0.2 % (0-2); Eosinophils Absolute Auto 0.1 X10*3/uL (0.0-0.4); Eosinophils Percent Auto 1.2 % (0-4); Hematocrit 34.4 % (42.0-52.0); Hemoglobin 11.6 g/dl (14.0-18.0); Imm Gran Abs Auto 0.02 X10*3/uL (0.00-0.03); Imm Gran Pct Auto 0.3 % (0.0-0.4); Lymphocytes Percent Auto 16.3 % (20-40); Mean Corpuscular HGB Conc 33.7 g/dl (31.0-36.0); Mean Corpuscular Hemoglobin 28.8 pg (27.0-33.0); Mean Corpuscular Volume 85.4 fL (80.0-98.0); Monocytes Absolute Auto 0.8 X10*3/uL (0.1-1.2); Monocytes Percent Auto 13.2 % (2-11); Neutrophils Percent Auto 68.8 % (45-73); Platelet Count 156 X10*3/uL (160-400); Red Blood Count 4.03 X10*6/uL (4.60-5.80); Red Cell Distribution Width 13.2 % (11.0-16.0); White Blood Count 5.8 X10*3/uL (4.8-10.8)
[2023-12-11 16:58] LABS: Alanine Aminotransferase 16 U/L (0-40); Albumin Level 4.2 g/dL (3.5-5.0); Alkaline Phosphatase 60 U/L (39-117); Anion Gap 13 (12-20); Aspartate Amino Transferase 21 U/L (5-37); Bilirubin Direct 0.1 mg/dL (0.0-0.5); Bilirubin Total 0.3 mg/dL (0.0-1.0); Blood Urea Nitrogen 24 mg/dL (9-16); Calcium 9.1 mg/dL (8.4-10.2); Carbon Dioxide 23 mmol/L (22-29); Chloride 108 mmol/L (96-108); Creatinine Clr Calc Pharmacy 37.5; Estimated Glomerular Filt Rate 46; Ethanol < 10 mg/dL; Glucose Random 100 mg/dL (60-115); Magnesium 1.8 mg/dL (1.6-2.6); Potassium 4.2 mmol/L (3.3-5.1); Sodium 140 mmol/L (135-145); Total Protein 6.7 g/dL (6.5-8.0)
--- NOTE | 2023-12-11 17:22 | PC.NURSE ---
Attempt to reach both of pt.'s contacts. Left VM for friend, Georgiana. HCP answered the phone and states that they don't know who pt. is.
[2023-12-11] MEDS: 0.9 % Sodium Chloride 1,000 ML 999 ML IVCONT (18:26)
[2023-12-11 19:41] VITALS: BP 140/89; PULSE 68; RESP 16; TEMP 36.3; O2SAT 95
[2023-12-11 19:57] LABS: Appearance Urine Clear; Color Urine Yellow; Glucose Urine UA Negative (Negative); Leukocyte Esterase Urine Negative (Negative); Nitrite Urine Negative (Negative); PH 6.5 (5.0-9.0); Specific Gravity - Urine 1.015 (1.005-1.025); Urine Blood Negative (Negative); Urine Ketones Negative (Negative); Urine Protein Negative (Neg-Trace)
[2023-12-11 20:06] LABS: Amphetamine Screen Urine Not Detected (Not Detect); Barbiturates, Urine Not Detected (Not Detect); Benzodiazepines Screen Urine Not Detected (Not Detect); Buprenorphine Scr Not Detected (Not Detect); Cannabinoid Screen Urine Not Detected (Not Detect); Cocaine Screen Urine Not Detected (Not Detect); Fentanyl, urine Not Detected (Not Detect); Methadone Screen, Urine Not Detected (Not Detect); Opiate Screen Urine Not Detected (Not Detect); Oxycodone Screen Urine Not Detected (Not Detect); Phencyclidine Screen Urine Not Detected (Not Detect)
--- NOTE | 2023-12-11 20:28 | MHC.CM.ED ---
Addendum entered by Alana Sanchez 12/11/23 21:59: CM filed with [facility] intake ID #[id number] Original Note: CM met with patient at the request of Dr. Carter. According to Dr. Carter, patient was found outside, about 200 ft from his apartment near a local restaurant. EMS was called and patient was brought to the ED. Pt is alert to name. Does not know why he is here. Pt can tell me he lives alone and Georgiana takes care of him. He uses a cane. He cannot answer any other questions. CM spoke with Georgiana Schmid HCP/PCP. HCP on file is Kong Martinez, but he was contacted by the RN and he tells CM that he does not know this patient. Georgiana tells CM she is now the patient's HCP and that Sean is his ex-brother in law. Pt is active with [facility] and with [facility]. His PCP works 8-9 hours daily. She feels he is safe at home and that he does not wander. She states he sometimes goes outside, but does not leave the area around his apartment. She states neighbors also watch out for him. She has a meeting with [facility] tomorrow at his home. She is working on adult day care for him. She has been caring for him for 3 years. She feels he is safe at home and is willing to bring him home. Provider and primary RN aware. CM will file with [facility].
[2023-12-11 21:30] VITALS: BP 127/79; PULSE 78; RESP 16; O2SAT 95
--- NOTE | 2023-12-11 21:30 | PC.NURSE ---
awaiting caregiver Karli to peanut picker pt. vss iv removed pt is pleasant speaking full clear sentences.
[2023-12-11 21:45] VITALS: BP 127/79; PULSE 78; RESP 16; TEMP 36.6; O2SAT 95
== END 2023-12-11 21:45 | disposition home or self-care (01) ==
PROVIDERS: Physician Assistant; Emergency Provider Emergency Medicine
DX: G30.9 Alzheimer's disease, unspecified (principal); F02.80 Dementia in other diseases classified elsewhere, unspecified severity, without behavioral disturbance, psychotic disturbance, mood disturbance, and anxiety; R41.82 Altered mental status, unspecified; Z79.899 Other long term (current) drug therapy; Z51.81 Encounter for therapeutic drug level monitoring
CPT/HCPCS: 36415; 70450; 80048; 80076; 80307; 81003; 83735; 85025; 96360; 99283; 99284